=== PATIENT | male | born 1960 | race Caucasian/White ===

== ENCOUNTER 2022-04-03 16:07 | Inpatient (IN) ==
--- NOTE | 2022-04-03 16:27 | ED Triage Note ---
Date of Service April 03, 2022 History of Present Illness This patient was briefly evaluated while in triage. An abbreviated physical exam was performed. This patient is a 61-year-old Male with past medical history of cholangiocarcinoma who presents to the ED for evaluation of swelling. Patient had an ultrasound today which showed ascites and a pleural effusion. Physical Exam VITALS: Vitals are noted on the nurse's note and reviewed by myself. GENERAL: This is a 61-year-old male, chronically ill appearing. SKIN: Multiple areas of ecchymosis noted. HEART: Regular rate and rhythm without murmurs gallops or rubs. LUNGS: Breath sounds diminished in bilateral bases. EXTREMITIES: 2+ pitting edema bilaterally. NEURO: Patient was alert and oriented to person place and time. Initial orders for labs and / or imaging were placed and patient was placed in the waiting area until a bed is available. Please see further documentation for the full ED course.
--- NOTE | 2022-04-03 16:54 | XRay Report ---
XR chest 1V portable HISTORY: Shortness of breath. Pleural effusion. COMPARISON: Chest 07/29/2021. FINDINGS: There is a small to moderate right pleural effusion with right basilar densities. A few lef t basilar linear densities are also noted. The heart is normal in size. A left PICC and right jugular Port-A-Cath terminates at the SVC. No pneumothorax. IMPRESSION: 1. Interval development of a small to moderate right pleural effusion. 2. Bibasilar densities, right greater than left, are nonspecific but favor atelectasis. A pneumonia c ould also have a similar appearance but is considered less likely. ACT 112: Negative or not required by law. Electronically signed by: Rubén Haas M.D. 04/03/2022 4:52 PM
[2022-04-03] MEDS ORDERED: SODIUM CHLORIDE 0.9% 1000ML 1,000 ML IV ONE (16:57)
--- NOTE | 2022-04-03 17:26 | Emergency Department Note ---
Impression & Plan Weakness, Anemia, Large bowel obstruction, Jaundice, Pleural effusion, Ascites ED Provider Note NAME: ZULY MARTINEZ AGE: 61 SEX: M : 1960 ARRIVES VIA: Walk-In INFORMANT: [Patient][family] ED PROVIDER(S): [Will Sauceda MD] CHIEF COMPLAINT: DrMarian Referred HISTORY OF PRESENT ILLNESS: The patient is a 61-year-old male with stage IV cholangiocarcinoma. The patient on outpatient testing was found to have a right pleural effusion and large ascites. He has had a low-grade fever of 100 degrees. He has had 2 weeks of increasing abdominal pain and distention. His legs have also become more swollen, has become more yellow in color. He only receives nutrition via a PICC line, he receives TPN. The abdominal pain is moderate in severity, it is ongoing and constant. His last chemotherapy was sometime in August. As per his family, no further intervention for his cancer is possible. The patient is on Xarelto, he has not noticed any bleeding areas. The patient denies any cough or shortness of breath. He does feel weak. He has not had a rash. REVIEW OF SYSTEMS: See HPI for pertinent positives and negatives. A total of ten systems were reviewed and were otherwise negative. PMHx/PSHx: See Below SOCIAL HISTORY: See Below. PHYSICAL EXAM: GENERAL: Patient is in no acute distress. HEENT: No acute trauma, normocephalic atraumatic, mucous membranes moist, no nasal congestion, mild scleral icterus. NECK: No stridor, no adenopathy, no meningismus, trachea is midline. LUNGS: No wheezing, no respiratory distress. Diminished breath sounds at the right base. HEART: Without murmurs gallops or rubs, mildly tachycardic, regular rhythm. ABDOMEN: Firm distended abdomen. No peritonitis. EXTREMITIES: No cyanosis. Significant bilateral pedal edema. NEUROLOGIC: Oriented x 3, no acute motor or sensory deficits, no focal weakness. SKIN: No rash, moderate jaundice, no diaphoresis. Rectal: Brown stool, heme-negative. DIFFERENTIAL DIAGNOSIS: Infection, dehydration, UTI, COVID-19, spontaneous bacterial peritonitis, ascites, bowel obstruction, liver or renal failure, metabolic abnormality, hypo/hyperglycemia, electrolyte disturbance, anemia, hypoxia, cardiac sources, intracerebral event, toxicologic issues, stroke, TIA, as well as other pathologies. EMERGENCY DEPARTMENT COURSE/PROCEDURES: ECG: Indication was weakness. The ECG shows a sinus tachycardia with a rate of 111. There is some nonspecific ST change and baseline artifact. There is no ST elevation, no PVCs. The QTc is 394. Continuous Cardiac Monitoring: An order was placed for continuous cardiac monitoring. The monitor shows a rate of 109 with sinus tachycardia. Critical Care Note: I have personally spent 48 minutes of critical care time in the direct management of this patient. This includes bedside care, interpretation of diagnostic studies, and testing, discussion with consultants, patient, and family members, and other required patient management activities. This 48 minutes is in excess of all separately billable procedures. MEDICAL DECISION MAKING: There is a significant leukocytosis at 20,000, this is consistent with infection. The patient does have a significant anemia with a hemoglobin of 5.5. Platelet count was low at 72. A slight elevation of the INR was noted at 1.3. Renal panel testing showed a lower sodium at 131. No renal failure. Bilirubin was quite high at 13.2. This certainly explains his jaundice. Alk phos was also quite elevated. Lipase was normal. Influenza, COVID and RSV test were negative. Chest x-ray shows a right lung effusion. Brain CT shows no acute bleed or mass-effect. Abdominal and pelvis CT shows evidence for a large bowel obstruction, no bowel perforation. There was increased dilatation of the hepatic ducts, a large amount of ascites was seen. On exam, the patient was quite jaundiced with some abdominal distention. He had significant bilateral pedal edema. I did perform a rectal exam, stool was brown and heme-negative. Patient was given IV saline, 1 L. He received IV cefepime as empiric antibiotic coverage. I talked to the patient about his findings. His options are limited given his end-stage cancer. He did consent to a red blood cell transfusion, this may help him feel a bit improved. The paperwork for the transfusion was completed and signed. 2 units of packed red blood cells were ordered. I spoke with case management, the on-call hospitalist has been consulted. The patient's condition is poor, he may not survive this hospitalization. Past Med/Surg History Medical History Cancer MASS BILE DUCT/LIVER PER PT Diabetes mellitus PRE DIABETIC Hx of pancreatitis Hyperlipidemia Osteoarthritis HX OF INJECTIONS AT C6-C7. PT CONTINUES TO HAVE SOME MILD NUMBNESS IN LEFT HAND AND LEFT 5TH DIGIT. Surgical History History of appendectomy History of colonoscopy History of ERCP Hx of vasectomy Nausea and vomiting after administration of anesthetic agent Social History Smoking Status: Never smoker Second Hand Exposure: No; Do You Dip or Chew Tobacco: No; Tobacco Cessation Education Requested by Patient: No Hx Alcohol Use: No Hx Substance Use: No Preferred Language: Guatemalan Communication Ability: Effective Lead Cytogenetic Technologist Required: No Beliefs That Will Affect Care: None Current Living Situation: Spouse Current Living Situation Comment: at home with Other Information That Helps Us Care for You: No Feels Safe at Home: Yes Safety Concerns: Feels Safe At This Time Assistive Devices: Cane and Walker Allergies Allergies Allergy/AdvReac Type Severity Reaction Status Date / Time oxycodone [From OxyContin] Allergy rash Verified 06/21/18 07:59 Home Meds Home Medications Medication Instructions Recorded Confirmed multivitamin 1 cap PO QAM 06/21/18 04/03/22 ferrous sulfate 325 mg (65 mg 325 mg PO BID 04/03/22 04/03/22 iron) tablet furosemide 20 mg tablet 40 mg PO DAILY 04/03/22 04/03/22 morphine 15 mg immediate release 15 mg PO Q4H PRN Pain 04/03/22 04/03/22 tablet ondansetron HCl 8 mg tablet 8 mg PO Q8H PRN Nausea 04/03/22 04/03/22 pantoprazole 40 mg tablet,delayed 40 mg PO DAILY 04/03/22 04/03/22 release polyethylene glycol 3350 17 17 g PO DAILY PRN Constipation 04/03/22 04/03/22 gram/dose oral powder rivaroxaban 20 mg tablet (Xarelto) 20 mg PO DAILY 04/03/22 04/03/22 spironolactone 50 mg tablet 100 mg PO DAILY 04/03/22 04/03/22 Results & Data (ED) Vital Signs Vital Signs - 24 hr 04/03/22 16:18 04/03/22 17:14 04/03/22 16:23 Temperature 36.7 C Temperature Source Temporal Artery Scan Pulse Rate 105 H Pulse Rate [Left Apical] 111 H Pulse Rhythm [Left Apical] Regular Pulse Strength [Left Apical] Normal Respiratory Rate 22 20 Respiratory Effort / Characteristics Non-Labored Spontaneous Non-Labored Spontaneous Respiratory Depth Normal Normal Respiratory Pattern Regular Blood Pressure 104/64 Blood Pressure [Right Arm] 101/57 L Blood Pressure Mean 77 Blood Pressure Mean [Right Arm] 71 Blood Pressure Position Sitting Blood Pressure Position [Right Arm] Pulse Oximetry 100 94 91 Oxygen Delivery Method Room Air Room Air Room Air Oxygen Flow Rate Sepsis Recent Fever Within 48 Hours No Sepsis New/Unexplained Change in Mental Status No Sepsis Action Taken by Nursing Physician Notified 04/03/22 18:30 04/03/22 18:51 Temperature Temperature Source Pulse Rate Pulse Rate [Left Apical] 107 H 92 H Pulse Rhythm [Left Apical] Regular Regular Pulse Strength [Left Apical] Normal Normal Respiratory Rate 20 16 Respiratory Effort / Characteristics Non-Labored Spontaneous Non-Labored Spontaneous Respiratory Depth Normal Normal Respiratory Pattern Blood Pressure Blood Pressure [Right Arm] 90/47 L 97/49 L Blood Pressure Mean Blood Pressure Mean [Right Arm] 61 65 Blood Pressure Position Blood Pressure Position [Right Arm] Lying Lying Pulse Oximetry 94 95 Oxygen Delivery Method Room Air Nasal Cannula Oxygen Flow Rate 2 Sepsis Recent Fever Within 48 Hours Sepsis New/Unexplained Change in Mental Status Sepsis Action Taken by [facility] Medications Current Medication List: was personally reviewed by me Laboratory Data Attestation: I reviewed the patient's lab results. Result diagrams: 04/03/22 17:11 04/03/22 17:11 Lab Results 04/03/22 04/03/22 04/03/22 Range/Units 17:11 17:11 17:11 WBC 20.89 H (4.8-10.8) K/ul RBC 2.09 L (4.63-6.08) M/uL Hgb 5.5 L* (14.0-18.0) g/dl Hct 15.7 L* (40.1-51.0) % MCV 75.1 L (80.0-100.0) fL MCH 26.3 (25.0-34.0) pg MCHC 35.0 (32.0-36.0) g/dL RDW Std Deviation 47.6 H (36.4-46.3) fL RDW Coeff of Amanda 18.0 H (11.5-14.5) % Plt Count 72 L (130-400) K/uL Immature Gran % (Auto) 0.8 % Neut % (Auto) 97.4 % Lymph % (Auto) 1.0 % [place] % (Auto) 0.6 % Eos % (Auto) 0.0 % Baso % (Auto) 0.2 % Neut # (Auto) 20.35 H (1.4-6.5) K/uL Lymph # (Auto) 0.21 L (1.2-3.4) K/uL [place] # (Auto) 0.12 L (0.24-0.82) K/uL Eos # (Auto) 0.00 (0-0.50) K/uL Baso # (Auto) 0.04 (0-0.2) K/uL Immature Gran # (Auto) 0.17 H (0.00-0.02) K/uL Toxic Vacuolation 1+ Platelet Estimate Decreased L (Normal) Target Cells 1+ Echinocytes 1+ PT 13.6 H (9.0-12.0) Seconds INR 1.3 H (0.9-1.1) APTT 27.2 (21.0-31.0) Seconds PTT Ratio 1.0 Sodium 131 L (136-145) mmol/L Potassium 4.3 (3.5-5.1) mmol/L Chloride 103 (98-107) mmol/L Carbon Dioxide 17 L (21-32) mmol/L Anion Gap 11 (3-11) BUN 55 H (6-23) mg/dl Creatinine 0.93 (0.6-1.4) mg/dl Est Cr Clr Drug Dosing 95.5 ml/min Est GFR ( Amer) 103.1 ml/min Est GFR (Non-Af Amer) 88.9 ml/min BUN/Creatinine Ratio 59.1 H (10-20) Glucose 58 L (70-99(Fasting)) mg/dl Lactate Calcium 7.4 L (8.5-10.1) mg/dl Magnesium 2.1 (1.7-2.4) mg/dl Total Bilirubin 13.2 H (0.2-1.0) mg/dl AST 61 H (13-39) U/L ALT 48 (7-52) U/L Alkaline Phosphatase 676 H (34-104) U/L Ammonia (18-72) umol/L Total Protein 5.5 L (6.0-8.3) gm/dl Albumin 2.0 L (3.4-5.0) gm/dl Globulin 3.5 (2.5-4.0) gm/dl Albumin/Globulin Ratio 0.6 L (0.9-2) Lipase 10 L (11-82) U/L SARS-CoV-2 (PCR) (Negative) Influenza Type A (PCR) (Neg) Influenza Type B (PCR) (Neg) RSV (RT-PCR) (Neg) Blood Type Antibody Screen Crossmatch 04/03/22 04/03/22 04/03/22 Range/Units 17:11 17:37 18:50 WBC (4.8-10.8) K/ul RBC (4.63-6.08) M/uL Hgb (14.0-18.0) g/dl Hct (40.1-51.0) % MCV (80.0-100.0) fL MCH (25.0-34.0) pg MCHC (32.0-36.0) g/dL RDW Std Deviation (36.4-46.3) fL RDW Coeff of Amanda (11.5-14.5) % Plt Count (130-400) K/uL Immature Gran % (Auto) % Neut % (Auto) % Lymph % (Auto) % [place] % (Auto) % Eos % (Auto) % Baso % (Auto) % Neut # (Auto) (1.4-6.5) K/uL Lymph # (Auto) (1.2-3.4) K/uL [place] # (Auto) (0.24-0.82) K/uL Eos # (Auto) (0-0.50) K/uL Baso # (Auto) (0-0.2) K/uL Immature Gran # (Auto) (0.00-0.02) K/uL Toxic Vacuolation Platelet Estimate (Normal) Target Cells Echinocytes PT (9.0-12.0) Seconds INR (0.9-1.1) APTT (21.0-31.0) Seconds PTT Ratio Sodium (136-145) mmol/L Potassium (3.5-5.1) mmol/L Chloride (98-107) mmol/L Carbon Dioxide (21-32) mmol/L Anion Gap (3-11) BUN (6-23) mg/dl Creatinine (0.6-1.4) mg/dl Est Cr Clr Drug Dosing ml/min Est GFR ( Amer) ml/min Est GFR (Non-Af Amer) ml/min BUN/Creatinine Ratio (10-20) Glucose (70-99(Fasting)) mg/dl Lactate TNP Calcium (8.5-10.1) mg/dl Magnesium (1.7-2.4) mg/dl Total Bilirubin (0.2-1.0) mg/dl AST (13-39) U/L ALT (7-52) U/L Alkaline Phosphatase (34-104) U/L Ammonia (18-72) umol/L Total Protein (6.0-8.3) gm/dl Albumin (3.4-5.0) gm/dl Globulin (2.5-4.0) gm/dl Albumin/Globulin Ratio (0.9-2) Lipase (11-82) U/L SARS-CoV-2 (PCR) NEGATIVE (Negative) Influenza Type A (PCR) Negative (Neg) Influenza Type B (PCR) Negative (Neg) RSV (RT-PCR) Negative (Neg) Blood Type Antibody Screen Crossmatch 04/03/22 Range/Units 18:50 WBC (4.8-10.8) K/ul RBC (4.63-6.08) M/uL Hgb (14.0-18.0) g/dl Hct (40.1-51.0) % MCV (80.0-100.0) fL MCH (25.0-34.0) pg MCHC (32.0-36.0) g/dL RDW Std Deviation (36.4-46.3) fL RDW Coeff of Amanda (11.5-14.5) % Plt Count (130-400) K/uL Immature Gran % (Auto) % Neut % (Auto) % Lymph % (Auto) % [place] % (Auto) % Eos % (Auto) % Baso % (Auto) % Neut # (Auto) (1.4-6.5) K/uL Lymph # (Auto) (1.2-3.4) K/uL [place] # (Auto) (0.24-0.82) K/uL Eos # (Auto) (0-0.50) K/uL Baso # (Auto) (0-0.2) K/uL Immature Gran # (Auto) (0.00-0.02) K/uL Toxic Vacuolation Platelet Estimate (Normal) Target Cells Echinocytes PT (9.0-12.0) Seconds INR (0.9-1.1) APTT (21.0-31.0) Seconds PTT Ratio Sodium (136-145) mmol/L Potassium (3.5-5.1) mmol/L Chloride (98-107) mmol/L Carbon Dioxide (21-32) mmol/L Anion Gap (3-11) BUN (6-23) mg/dl Creatinine (0.6-1.4) mg/dl Est Cr Clr Drug Dosing ml/min Est GFR ( Amer) ml/min Est GFR (Non-Af Amer) ml/min BUN/Creatinine Ratio (10-20) Glucose (70-99(Fasting)) mg/dl Lactate Calcium (8.5-10.1) mg/dl Magnesium (1.7-2.4) mg/dl Total Bilirubin (0.2-1.0) mg/dl AST (13-39) U/L ALT (7-52) U/L Alkaline Phosphatase (34-104) U/L Ammonia (18-72) umol/L Total Protein (6.0-8.3) gm/dl Albumin (3.4-5.0) gm/dl Globulin (2.5-4.0) gm/dl Albumin/Globulin Ratio (0.9-2) Lipase (11-82) U/L SARS-CoV-2 (PCR) (Negative) Influenza Type A (PCR) (Neg) Influenza Type B (PCR) (Neg) RSV (RT-PCR) (Neg) Blood Type A Positive Antibody Screen NEGATIVE Crossmatch See Detail Administered Medications Furosemide (Furosemide Inj 20 Mg/2 Ml Vial) 20 mg IV DAILY NADER Stop: 05/03/22 22:46 Last Admin: 04/04/22 00:09 Dose: Not Given Documented By: Pantoprazole Sodium 40 mg/ (Syringe) 10 mls @ 5 mls/min IV BID NADER Stop: 05/03/22 20:59 Last Admin: 04/03/22 21:03 Dose: 5 mls/min Documented By: CC Discontinued Medications Sodium Chloride (Nss 1000ml) 1,000 mls @ 999 mls/hr IV .Q1H1M ONE Stop: 04/03/22 17:57 Last Infusion: 04/03/22 18:33 Dose: 0 mls/hr Documented By: HOLLY(2) Admin: 04/03/22 17:32 Dose: 999 mls/hr Documented By: TW Cefepime HCl (Maxipime) 2,000 mg in 20 mls @ 5 mls/min IV NOW STA; Protocol Stop: 04/03/22 18:14 Last Admin: 04/03/22 18:49 Dose: 5 mls/min Documented By: TW Imaging Data Radiologist's Impression: Chest X-Ray 04/03/22 16:23 XR chest 1V portable HISTORY: Shortness of breath. Pleural effusion. COMPARISON: Chest 07/29/2021. FINDINGS: There is a small to moderate right pleural effusion with right basilar densities. A few left basilar linear densities are also noted. The heart is normal in size. A left PICC and right jugular Port-A-Cath terminates at the SVC. No pneumothorax. IMPRESSION: 1. Interval development of a small to moderate right pleural effusion. 2. Bibasilar densities, right greater than left, are nonspecific but favor atelectasis. A pneumonia could also have a similar appearance but is considered less likely. ACT 112: Negative or not required by law. Electronically signed by: Rubén Haas M.D. 04/03/2022 4:[address] 04/03/22 16:57 CT head/brain wo con CLINICAL HISTORY: 61 years-old Male with seizure. Acute seizure like activity TECHNIQUE: Multiple axial CT images of the head were obtained without contrast. A dose lowering technique was utilized adhering to the principles of ALARA. CT DOSE: 519.68 mGycm COMPARISON: None. FINDINGS: No acute intracranial hemorrhage, midline shift, intracranial mass, hydrocephalus, territorial ischemia or abnormal extra-axial collection. Cerebral vascular calcifications. The calvarium is intact. The paranasal sinuses, mastoid air cells, and middle ear cavities are clear. IMPRESSION: No acute intracranial abnormality. ACT 112: Negative or not required by law. The above report was generated using voice recognition software. It may contain grammatical, syntax or spelling errors. Electronically signed by: Justin Guzman M.D. 04/03/2022 6:06 PM Abdomen/Pelvis CT 04/03/22 17:[address] WITHOUT CONTRAST CT DOSE: 1007.73 mGycm HISTORY: Acute generalized abdominal pain poss obstruc TECHNIQUE: Multiaxial CT images of the abdomen and pelvis were performed without contrast. A dose lowering technique was utilized adhering to the principles of ALARA. COMPARISON STUDY: CTA of the abdomen from outside facility 08/10/2018 FINDINGS: Study is limited secondary to respiratory motion artifact, and lack of contrast. Cardiomegaly with decreased attenuation of the cardiac blood pool suggestive of anemia. Small pericardial effusion. Trace left with moderate to large right pleural effusions. Bibasilar consolidation. No pneumatosis or pneumoperitoneum is identified. The unenhanced spleen is enlarged measuring 15.6 cm in length. The visualized pancreas appears atrophic. Surgical clips and suture material noted within the midabdomen is new from the prior study. Adrenal gland thickening suggestive of hyperplasia. The gallbladder is not visualized. Branchi ng hypodensities within the posterior right hepatic lobe have progressed from the prior study suggestive of intrahepatic biliary ductal dilation. There is heterogeneity of the central liver and kecia hepatis. 3 mm nonobstructing calculus of the inferior pole right kidney. 2 mm calculus of the interpolar left kidney. Possible additional punctate calculus of the inferior pole. No ureteral calculi or hydronephrosis identified. Prostamegaly. Urinary bladder wall thickening with partial distention. There is a small fat filled right inguinal hernia with fluid extending into the hernia sac. Atherosclerosis of the aorta without aneurysm. Postoperative changes of the stomach and proximal small bowel. Large ascites with anasarca. Large amount of fecal retention. Findings are compatible with a large bowel obstruction with swelling noted within the lower abdominal mesentery. There may be 2.7 obstruction within the large bowel. At least one area of transition is noted within the distribution of the transverse colon. Additional narrowing is noted at the hepatic flexure. The cecum appears to be present within the abdominal right lower quadrant. No definite associated small bowel obstruction. Degenerative changes of the spine, pelvis and hips. IMPRESSION: 1. Limited exam. 2. Extensive fecal retention with findings compatible with a large bowel obstruction, possibly with 2 sites of obstruction. Findings raise the possibility of a closed loop obstruction which is difficult to evaluate secondary to limitations described above. 3. Volume overload with anasarca, large ascites with small pericardial effusion with large right pleural effusion. 4. Progressively worsened intrahepatic biliary ductal dilation. Hepatic lesions are difficult to exclude without the use of IV contrast. 5. Chronic postoperative changes. ACT 112: Negative or not required by law. The above report was generated using voice recognition software. It may contain grammatical, syntax or spelling errors. Electronically signed by: Justin Guzman M.D. 04/03/2022 7:01 PM Discharge Plan Visit Data Chief Complaint: Referred by Doctor Stated Complaint: REF BY [facility], CANCER ED Provider: Will Sauceda Discharge Problem: Weakness, Anemia, Large bowel obstruction, Jaundice, Pleural effusion, Ascites Patient Disposition: Admitted As Inpatient Condition: Serious Discharge Instructions Interventions: ED Discharge Assessment Last Done: 04/03/22 21:55
[2022-04-03 17:42] LABS: INR 1.3 (0.9-1.1); Partial Thromboplastin Time 27.2 Seconds (21.0-31.0); Prothrombin Time 13.6 Seconds (9.0-12.0)
[2022-04-03 17:48] LABS: Basophils # (auto) 0.04 K/uL (0-0.2); Basophils % (auto) 0.2 %; Echinocytes 1+; Hematocrit (blood only) 15.7 % (40.1-51.0); Hemoglobin 5.5 g/dl (14.0-18.0); Immature Granulocytes # (auto) 0.17 K/uL (0.00-0.02); Immature Granulocytes % (auto) 0.8 %; Lymphocytes # (auto) 0.21 K/uL (1.2-3.4); Mean Corpuscular Hemoglobin 26.3 pg (25.0-34.0); Mean Corpuscular Volume 75.1 fL (80.0-100.0); Monocytes # (auto) 0.12 K/uL (0.24-0.82); Monocytes % (auto) 0.6 %; Neutrophils # (auto) 20.35 K/uL (1.4-6.5); Neutrophils % (auto) 97.4 %; Platelet Count 72 K/uL (130-400); Platelet Estimate Decreased (Normal); RDW Standard Deviation 47.6 fL (36.4-46.3); Red Blood Count 2.09 M/uL (4.63-6.08); Target Cells 1+; Toxic Vacuolation 1+; White Blood Count 20.89 K/ul (4.8-10.8)
--- NOTE | 2022-04-03 18:08 | CT Scan Report ---
CT head/brain wo con CLINICAL HISTORY: 61 years-old Male with seizure. Acute seizure like activity TECHNIQUE: Multiple axial CT images of the head were obtained without contrast. A dose lowering tech nique was utilized adhering to the principles of ALARA. CT DOSE: 519.68 mGycm COMPARISON: None. FINDINGS: No acute intracranial hemorrhage, midline shift, intracranial mass, hydrocephalus, territorial ischem ia or abnormal extra-axial collection. Cerebral vascular calcifications. The calvarium is intact. The paranasal sinuses, mastoid air cells, and middle ear cavities are clear . IMPRESSION: No acute intracranial abnormality. ACT 112: Negative or not required by law. The above report was generated using voice recognition software. It may contain grammatical, syntax o r spelling errors. Electronically signed by: Justin Guzman M.D. 04/03/2022 6:06 PM
[2022-04-03] MEDS ORDERED: CEFEPIME 2,000 MG/20 ML VIAL IV STA (18:11)
[2022-04-03] MEDS ORDERED: SODIUM CHLORIDE 0.9% 250 ML IV PRN (18:24)
--- NOTE | 2022-04-03 19:03 | CT Scan Report ---
ABDOMEN AND PELVIS CT WITHOUT CONTRAST CT DOSE: 1007.73 mGycm HISTORY: Acute generalized abdominal pain poss obstruc TECHNIQUE: Multiaxial CT images of the abdomen and pelvis were performed without contrast. A dose lo wering technique was utilized adhering to the principles of ALARA. COMPARISON STUDY: CTA of the abdomen from outside facility 08/10/2018 FINDINGS: Study is limited secondary to respiratory motion artifact, and lack of contrast. Cardiomegaly with decreased attenuation of the cardiac blood pool suggestive of anemia. Small pericar dial effusion. Trace left with moderate to large right pleural effusions. Bibasilar consolidation. No pneumatosis or pneumoperitoneum is identified. The unenhanced spleen is enlarged measuring 15.6 cm i n length. The visualized pancreas appears atrophic. Surgical clips and suture material noted within t he midabdomen is new from the prior study. Adrenal gland thickening suggestive of hyperplasia. The ga llbladder is not visualized. Branching hypodensities within the posterior right hepatic lobe have pro gressed from the prior study suggestive of intrahepatic biliary ductal dilation. There is heterogenei ty of the central liver and kecia hepatis. 3 mm nonobstructing calculus of the inferior pole right kidney. 2 mm calculus of the interpolar left kidney. Possible additional punctate calculus of the inferior pole. No ureteral calculi or hydronephr osis identified. Prostamegaly. Urinary bladder wall thickening with partial distention. There is a sm all fat filled right inguinal hernia with fluid extending into the hernia sac. Atherosclerosis of the aorta without aneurysm. Postoperative changes of the stomach and proximal small bowel. Large ascites with anasarca. Large tarun unt of fecal retention. Findings are compatible with a large bowel obstruction with swelling noted wi thin the lower abdominal mesentery. There may be 2.7 obstruction within the large bowel. At least one area of transition is noted within the distribution of the transverse colon. Additional narrowing is noted at the hepatic flexure. The cecum appears to be present within the abdominal right lower quadr ant. No definite associated small bowel obstruction. Degenerative changes of the spine, pelvis and hi ps. IMPRESSION: 1. Limited exam. 2. Extensive fecal retention with findings compatible with a large bowel obstruction, possibly with 2 sites of obstruction. Findings raise the possibility of a closed loop obstruction which is difficult to evaluate secondary to limitations described above. 3. Volume overload with anasarca, large ascites with small pericardial effusion with large right pleu ral effusion. 4. Progressively worsened intrahepatic biliary ductal dilation. Hepatic lesions are difficult to excl ude without the use of IV contrast. 5. Chronic postoperative changes. ACT 112: Negative or not required by law. The above report was generated using voice recognition software. It may contain grammatical, syntax o r spelling errors. Electronically signed by: Justin Guzman M.D. 04/03/2022 7:01 PM
[2022-04-03 19:08] LABS: Influenza A virus by PCR Negative (Neg); Influenza B virus by PCR Negative (Neg); RSV by PCR Negative (Neg); SARS CoV2 RNA(COVID-19) InHosp NEGATIVE (Negative)
[2022-04-03 19:16] LABS: Albumin Globulin Ratio 0.6 (0.9-2); BUN Creatinine Ratio 59.1 (10-20); Bilirubin,Total 13.2 mg/dl (0.2-1.0); Calcium 7.4 mg/dl (8.5-10.1); Creatinine Clr Calc Pharmacy 95.5 ml/min; Est GFR (African American) 103.1 ml/min; Est GFR (Non-African American) 88.9 ml/min; Globulin 3.5 gm/dl (2.5-4.0); Magnesium 2.1 mg/dl (1.7-2.4); Potassium 4.3 mmol/L (3.5-5.1); Total Protein 5.5 gm/dl (6.0-8.3)
--- NOTE | 2022-04-03 19:40 | History & Physical Report ---
Date of Service April 03, 2022 Assessment & Plan (1) Anasarca: Plan Stage IV cholangiocarcinoma history Abdominal distention/pain--> large bowel obstruction Ascites/anasarca/large right pleural effusion Patient coming in with worsening abdominal pain/distention since last 2 weeks TELESALES ADVISOR Patient does have advanced cholangiocarcinoma not deemed amenable to any further chemo per patient's per his primary oncologist. Admitting CTAP: Suggestive of large bowel obstruction, volume overload with anasarca and large ascites and large right pleural effusion, progressively worsened intrahepatic biliary ductal dilatation. Will continue with Lasix iv and Aldactone, n.p.o. except for meds/ice chips, TPN in a.m., blood transfusion, will hold on IV fluids. Conservative management for bowel obstruction, pt w/ occasional nausea, no vomiting, last BM 7 days ago (liquid BM) and pt doesn't take food per PO---> consider surgery consult if hospice is not set up. Cancer not amenable to further chemo, very poor prognosis, patient and his interested in exploring hospice option, will consult case management. WBC elevated on the background of abdominal distention and pain, will continue with Rocephin. Lactate level not obtainable due to icterus. For body cavity fluid collection, paracentesis tomorrow with the studies and follow blood culture-->since radiology is not in house over weekeds as I am informed, AM provider will have to get in touch w/ radio to see if they can do it; for large rt pleural effusion--> pulm consult. Acute anemia: Last hemoglobin from outpatient chart review is 15 from August 2018, FOBT negative in the ED, CTAP negative for any bleed, will send iron panel, patient getting 2 units blood transfusion per ED provider, H&H in AM. Mild hyponatremia: monitor BMP in AM. DVT Px: Xarelto held, paracentesis eunice, SCDs DNR/DNI Dispo: Pt will benefit from Hospice care given advanced cancer with poor prognosis. Pt/family would like to explore hospice options. History of Present Illness Chief Complaint: abd pain and distension Primary Care Provider: Morgan Riley DO 61-year-old male with PMH of stage IV cholangiocarcinoma, colon cancer, biliary stricture, pancreatitis, HTN, HLD, status post Whipple procedure and chemotherap y, last chemo September of this year and was deemed not suitable for any further chemo per patient's primary oncologist Per patient's at bedside presented to our ED 04/03 with complaint of worsening abdominal distention and belly pain since 2 weeks TELESALES ADVISOR. Patient was noted to have fever of 100 F today at home. Patient denies headache/dizziness/sore throat/cough/shortness of breath/chest pain/palpitation/acute changes in bowel or bladder habits. Patient gets nutrition through TPN, can drink water and p.o. meds but does not have food intake. Patient does complain of some nausea but no vomiting. Patient also complains of generalized body swelling/fluid retention and becoming more yellow in color lately. FOBT in the ED was negative. Patient denies use of tobacco/alcohol/recreational drugs. Patient is DNR/DNI. Patient is interested in exploring hospice option, will consult case management. Allergies Allergy/AdvReac Type Severity Reaction Status Date / Time oxycodone [From OxyContin] Allergy rash Verified 06/21/18 07:59 Home Medications Medication Instructions Recorded Confirmed Type multivitamin 1 cap PO QAM 06/21/18 06/21/18 History ferrous sulfate 325 mg (65 mg 325 mg PO BID 04/03/22 04/03/22 History iron) tablet furosemide 20 mg tablet 40 mg PO DAILY 04/03/22 04/03/22 History morphine 15 mg immediate release 15 mg PO Q4H PRN Pain 04/03/22 04/03/22 History tablet ondansetron HCl 8 mg tablet 8 mg PO Q8H PRN Nausea 04/03/22 04/03/22 History pantoprazole 40 mg tablet,delayed 40 mg PO DAILY 04/03/22 04/03/22 History release polyethylene glycol 3350 17 17 g PO DAILY PRN Constipation 04/03/22 04/03/22 History gram/dose oral powder rivaroxaban 20 mg tablet (Xarelto) 20 mg PO DAILY 04/03/22 04/03/22 History spironolactone 50 mg tablet 100 mg PO DAILY 04/03/22 04/03/22 History Past Med/Surg History Medical History (Updated 04/03/22 @ 20:19 by Olaf West MD) Cancer MASS BILE DUCT/LIVER PER PT Diabetes mellitus PRE DIABETIC Hx of pancreatitis Hyperlipidemia Osteoarthritis HX OF INJECTIONS AT C6-C7. PT CONTINUES TO HAVE SOME MILD NUMBNESS IN LEFT HAND AND LEFT 5TH DIGIT. Surgical History History of appendectomy History of colonoscopy History of ERCP Hx of vasectomy Nausea and vomiting after administration of anesthetic agent Social History Smoking Status: Never smoker Second Hand Exposure: No; Hx Alcohol Use: No (HX OF 3 BEER A DAY, QUIT March) Hx Substance Use: No Preferred Language: Cymro Communication Ability: Effective Head Correction Officer Required: No Beliefs That Will Affect Care: None Current Living Situation: Spouse Feels Safe at Home: Yes Assistive Devices: None Review of Systems Review of Systems: Negative otherwise mentioned in HPI. Physical Exam Physical Exam: GENERAL: Alert and oriented x3. On 2 L nasal cannula oxygen, mild distress, weak/ill/weak/frail/older than age. HEENT: Pallor positive, icterus positive. Pupils equal, round and reactive to light. Oral mucosa moist. NECK: No JVD, no neck masses. HEART: S1 and S2 heard. Tachycardic. No murmur, no gallop. RESPIRATORY SYSTEM: Normal AP diameter. No accessory muscle use. No wheezing, no crackles. Decreased breath sounds right greater than left. ABDOMEN: Distended, tense, mild diffuse tenderness, healed midline surgical scar noted, decreased bowel sounds. CENTRAL NERVOUS SYSTEM: No facial droop. Speech is clear. Obeys simple commands. Moves extremities. EXTREMITIES: 3+ BLE edema, 2+ thigh edema and back edema. Results & Data Results & Data ([facility]) Vital Signs (Past 12 Hours) Vital Signs Temp Pulse Pulse Resp BP BP Pulse Ox 04/03/22 18:51 92 H 16 97/49 L 95 04/03/22 18:30 107 H 20 90/47 L 94 04/03/22 16:23 91 04/03/22 17:14 111 H 20 101/57 L 94 04/03/22 16:18 36.7 C 105 H 22 104/64 100 O2 Del Method O2 Flow Rate 04/03/22 18:51 Nasal Cannula 2 04/03/22 18:30 Room Air 04/03/22 16:23 Room Air 04/03/22 17:14 Room Air 04/03/22 16:18 Room Air Code Status & VTE Plan VTE Prophylaxis Plan VTE Prophylaxis will be ordered: Yes
[2022-04-03] MEDS ORDERED: TPN/PPN CONSULT PHARMACY PRN (20:19)
[2022-04-03] MEDS: PANTOprazole 40 MG in SYRINGE 0 ML IV SCH (21:03)
[2022-04-03] MEDS ORDERED: ONDANSETRON INJ 2 MG/ML 2 ML VIAL IV PRN (22:47)
[2022-04-04] MEDS: FUROSEMIDE INJ 20 MG/2 ML VIAL IV SCH (00:09)
[2022-04-04 00:39] LABS: HCO3 ABG 18 mmol/L (19-24); Oxygen Saturation ABG 98.1 % (90-95); PCO2 ABG 29 mmHg (35-46); PO2 ABG 69 mmHg (80-95); pH ABG 7.41 (7.35-7.45)
[2022-04-04 01:02] LABS: Allen Test Pos (Pos)
[2022-04-04] MEDS ORDERED: cefTRIAXone SODIUM 2,000 MG in DEXTROSE 5% 50 ML IV SCH (03:00)
[2022-04-04 05:52] LABS: A calco-baum cmplx NotReported Not Detected (NotDetected); Bact fragilis Not Reported Not Detected (NotDetected); C auris Not Reported Not Detected (NotDetected); CTX-M Resistant Gene Not Detected (NotDetected); Calbicans Not Reported Not Detected (NotDetected); Candida glabrata Not Reported Not Detected (NotDetected); Candida krusei Not Reported Not Detected (NotDetected); Cneoformans/gatti Not Reported Not Detected (NotDetected); Cparapsilosis Not Reported Not Detected (NotDetected); Ctropicalis Not Reported Not Detected (NotDetected); E cloacae compx Not Reported Not Detected (NotDetected); Efaecalis Not Reported Not Detected (NotDetected); Efaecium Not Reported Not Detected (NotDetected); Enterobacterales DETECTED (NotDetected); Enterobacterales Not Reported DETECTED (NotDetected); Escherichia coli Not Reported DETECTED (NotDetected); H influenzae Not Reported Not Detected (NotDetected); IMP Resistant Gene Not Detected (NotDetected); K aerogenes Not Reported Not Detected (NotDetected); KPC Resistant Gene Not Detected (NotDetected); Koxytoca Not Reported Not Detected (NotDetected); Kpneumoniae grp Not Reported Not Detected (NotDetected); Lmonocyt Not Reported Not Detected (NotDetected); N meningitidis Not Reported Not Detected (NotDetected); NDM Resistant Gene Not Detected (NotDetected); OXA 48 Like Resistant Gene Not Detected (NotDetected); P aeruginosa Not Reported Not Detected (NotDetected); Proteus spp Not Reported Not Detected (NotDetected); Salmonella spp Not Reported Not Detected (NotDetected); Smarcescens Not Reported Not Detected (NotDetected); Staph lugdunensis Not Reported Not Detected (NotDetected); Staph spp. Not Reported Not Detected (NotDetected); Staphaureus Not Reported Not Detected (NotDetected); Staphepi Not Reported Not Detected (NotDetected); Stenmaltophilia Not Reported Not Detected (NotDetected); Strep agal(GrpB) Not Reported Not Detected (NotDetected); Strep pneum Not Reported Not Detected (NotDetected); Strep pyog (GrpA) Not Reported Not Detected (NotDetected); Strep spp Not Reported Not Detected (NotDetected); VIM Resistant Gene Not Detected (NotDetected); mcr-1 Colistin Resistant Gene Not Detected (NotDetected)
[2022-04-04] MEDS ORDERED: PIPERACILLIN/TAZOBACTAM 4.5 GM in DEXTROSE 5% 100 ML IV ONE (06:30)
[2022-04-04 07:29] LABS: Anion Gap 9 (3-11); BUN Creatinine Ratio 59.5 (10-20); Blood Urea Nitrogen 50 mg/dl (6-23); Carbon Dioxide 19 mmol/L (21-32); Chloride 104 mmol/L (98-107); Creatinine Clr Calc Pharmacy 105.7 ml/min; Est GFR (African American) 110.3 ml/min; Est GFR (Non-African American) 95.2 ml/min; Glucose 80 mg/dl (70-99(Fasting)); Sodium 132 mmol/L (136-145)
[2022-04-04 07:36] LABS: Hematocrit (blood only) 20.8 % (40.1-51.0); Hemoglobin 7.5 g/dl (14.0-18.0); Mean Corpuscular Hemoglobin 27.7 pg (25.0-34.0); Mean Corpuscular Hgb Conc 36.1 g/dL (32.0-36.0); Mean Corpuscular Volume 76.8 fL (80.0-100.0); Platelet Count 56 K/uL (130-400); RDW Coefficient of Variation 18.9 % (11.5-14.5); RDW Standard Deviation 52.1 fL (36.4-46.3); Red Blood Count 2.71 M/uL (4.63-6.08); White Blood Count 20.38 K/ul (4.8-10.8)
[2022-04-04 07:40] LABS: Acanthocytes 1+; Basophils # (auto) 0.03 K/uL (0-0.2); Basophils % (auto) 0.1 %; Echinocytes 2+; Eosinophils % (auto) 0.5 %; Immature Granulocytes # (auto) 0.22 K/uL (0.00-0.02); Immature Granulocytes % (auto) 1.1 %; Lymphocytes # (auto) 0.66 K/uL (1.2-3.4); Lymphocytes % (auto) 3.2 %; Macrocytosis Present; Monocytes # (auto) 0.48 K/uL (0.24-0.82); Monocytes % (auto) 2.4 %; Neutrophils # (auto) 18.89 K/uL (1.4-6.5); Neutrophils % (auto) 92.7 %; Poikilocytosis Present; Polychromasia 1+; Target Cells 1+; Toxic Granulation 1+; Toxic Vacuolation 1+
[2022-04-04 07:46] LABS: Ferritin 352.2 ng/ml (8-388)
[2022-04-04 07:52] LABS: Folate (Folic Acid) 8.81 ng/ml (>5.38)
[2022-04-04 07:53] LABS: Vitamin B12 > 1500 pg/ml (180-914)
[2022-04-04] MEDS: PANTOprazole 40 MG in SYRINGE 0 ML IV SCH ×2 (08:00→20:39)
[2022-04-04] MEDS: SPIRONOLACTONE 100 MG TAB PO SCH (08:00)
--- NOTE | 2022-04-04 09:27 | Electrocardiogram Report ---
Test Reason : Blood Pressure : / mmHG Vent. Rate : 111 BPM Atrial Rate : 111 BPM P-R Int : 142 ms QRS Dur : 084 ms QT Int : 290 ms P-R-T Axes : 034 014 035 degrees QTc Int : 394 ms Poor data quality, interpretation may be adversely affected Sinus tachycardia Diffuse Minor Nonspecific T wave abnormality Abnormal ECG When compared with ECG of 20-MAY-2018 06:09, Vent. rate has increased BY 39 BPM Nonspecific T wave abnormality now present Confirmed by Tk Kimball ([id number]) on 04/04/2022 9:27:13 AM Referred By: REFERRED SELF Confirmed By:Tk Kimball
[2022-04-04] MEDS ORDERED: DEXTROSE 10% 1,000 ML IV PRN (09:57)
[2022-04-04 10:15] LABS: Alanine Aminotransferase 40 U/L (7-52); Albumin Globulin Ratio 0.6 (0.9-2); Albumin Level 1.9 gm/dl (3.4-5.0); Alkaline Phosphatase 465 U/L (34-104); Aspartate Aminotransferase 52 U/L (13-39); Bilirubin,Total 12.3 mg/dl (0.2-1.0); Globulin 3.1 gm/dl (2.5-4.0); Iron < 10 mcg/dl (35-175); Magnesium 2.2 mg/dl (1.7-2.4); Phosphorus 4.3 mg/dl (2.5-4.9); Transferrin 137 mg/dl (200-360); Triglycerides 144 mg/dl (0-150); Unsaturated Iron Binding Cap 148 mcg/dl (155-355)
[2022-04-04] MEDS: MoRPHine SULFATE 4 MG/ML 1 ML CARP\\VIAL IV PRN ×2 (10:31→16:22)
[2022-04-04] MEDS ORDERED: PIPERACILLIN/TAZOBACTAM 3.375 GM in DEXTROSE 5% 100 ML IV SCH (12:00)
--- NOTE | 2022-04-04 12:31 | Anesthesiology Consultation ---
Date of Service April 04, 2022 Assessment & Plan (1) Encounter for pre-operative examination: Chart Review Chart Review: Patient NOT seen in Pre Admission Testing Patient at high risk for procedure, however will proceed due to emergent nature Consults Requested none History Surgery Operation Date: 04/04/22 13:00 Proposed Procedures p Esophagogastroduodenoscopy - Vaughn Richard MD Height/Weight Height: 6 ft 1 in Weight: 85 kg Allergies Allergy/AdvReac Type Severity Reaction Status Date / Time oxycodone [From OxyContin] Allergy rash Verified 06/21/18 07:59 Medications Home Medications Medication Instructions Recorded Confirmed Last Taken multivitamin 1 cap PO QAM 06/21/18 04/03/22 Unknown ferrous sulfate 325 mg (65 mg 325 mg PO BID 04/03/22 04/03/22 Unknown iron) tablet furosemide 20 mg tablet 40 mg PO DAILY 04/03/22 04/03/22 04/03/22 morphine 15 mg immediate release 15 mg PO Q4H PRN Pain 04/03/22 04/03/22 Unknown tablet ondansetron HCl 8 mg tablet 8 mg PO Q8H PRN Nausea 04/03/22 04/03/22 Unknown pantoprazole 40 mg tablet,delayed 40 mg PO DAILY 04/03/22 04/03/22 04/03/22 release polyethylene glycol 3350 17 17 g PO DAILY PRN Constipation 04/03/22 04/03/22 Unknown gram/dose oral powder rivaroxaban 20 mg tablet (Xarelto) 20 mg PO DAILY 04/03/22 04/03/22 04/03/22 spironolactone 50 mg tablet 100 mg PO DAILY 04/03/22 04/03/22 04/03/22 Active Medications Generic Name Dose Route Start Last Admin Trade Name Freq PRN Reason Stop Dose Admin Furosemide 20 mg 04/03/22 22:47 04/04/22 00:09 Furosemide Inj 20 Mg/2 Ml Vial IV 05/03/22 22:46 Not Given DAILY NADER Pantoprazole Sodium 40 mg/ 10 mls @ 5 mls/min 04/03/22 21:00 04/04/22 08:00 Syringe IV 05/03/22 20:59 5 mls/min BID NADER Administration Morphine Sulfate 4 mg 04/04/22 08:08 04/04/22 10:31 Morphine Sulfate 4 Mg/Ml 1 Ml Carp\Vial IV 04/18/22 08:07 4 mg Q6H PRN Administration Pain Spironolactone 100 mg 04/04/22 09:00 04/04/22 08:00 Spironolactone 100 Mg Tab PO 05/04/22 08:59 100 mg QAM NADER Administration Past Medical History Medical History Cancer MASS BILE DUCT/LIVER PER PT Diabetes mellitus PRE DIABETIC Hx of pancreatitis Hyperlipidemia Osteoarthritis HX OF INJECTIONS AT C6-C7. PT CONTINUES TO HAVE SOME MILD NUMBNESS IN LEFT HAND AND LEFT 5TH DIGIT. Past Surgical History Surgical History History of appendectomy History of colonoscopy History of ERCP Hx of vasectomy Nausea and vomiting after administration of anesthetic agent Social History Smoking Status: Never smoker tobacco type: smokeless tobacco Do You Dip or Chew Tobacco: No Hx Alcohol Use: No Hx Substance Use: No substance use type: does not use Physical Exam Vital Signs Last Vital Signs Temp 97.5 F L 04/04/22 11:22 Pulse 75 04/04/22 11:22 Resp 19 04/04/22 11:22 BP 94/64 L 04/04/22 11:22 Pulse Ox 95 04/04/22 11:22 O2 Del Method 04/04/22 11:22 O2 Flow Rate 2 04/04/22 09:00 Testing Laboratory Results 04/04/22 05:56 04/04/22 05:56 PT 13.6 Seconds (9.0-12.0) H 04/03/22 17:11 INR 1.3 (0.9-1.1) H 04/03/22 17:11 APTT 27.2 Seconds (21.0-31.0) 04/03/22 17:11 Blood Type A Positive 04/03/22 18:50 Antibody Screen NEGATIVE 04/03/22 18:50 04/03/22 18:50 Aerobic Blood Culture - Preliminary Blood Gram negative bacilli Anaerobic Blood Culture - Preliminary Gram negative bacilli 04/03/22 18:50 Aerobic Blood Culture - Preliminary Blood Gram negative bacilli Anaerobic Blood Culture - Preliminary Gram negative bacilli 04/04/22 04/04/22 11:37 07:40 POC Glucose 89 86 Electrocardiogram Date: 04/03/22 Findings: + NSR @ (tachy) Chest X-Ray Date: 04/03/22 Findings: + pleural effusion (R)
[2022-04-04] MEDS ORDERED: ePHEDrine sulfate 50 MG/ML AMP IV PRN ×2 (12:32→13:08)
[2022-04-04] MEDS ORDERED: ATROPINE SULFATE 0.1 MG/ML 10ML SYR IV PRN ×2 (12:32→13:08)
[2022-04-04] MEDS ORDERED: ONDANSETRON INJ 2 MG/ML 2 ML VIAL IV PRN ×2 (12:32→13:08)
[2022-04-04] MEDS ORDERED: ONDANSETRON INJ 2 MG/ML 2 ML VIAL ONE (12:52)
[2022-04-04] MEDS ORDERED: PROPOFOL IV EMULSION 10 MG/ML 20 ML VIAL IV ONE (12:52)
[2022-04-04] MEDS ORDERED: fentaNYL citrate 100 MCG/2 ML VIAL ONE (12:52)
[2022-04-04] MEDS ORDERED: DEXAMETHASONE SOD INJ 4 MG/ML VIAL ONE (12:52)
[2022-04-04] MEDS ORDERED: MIDAZOLAM HCL 1 MG/ML 2ML VIAL ONE (12:52)
--- NOTE | 2022-04-04 13:23 | Gastrointestinal Consultation ---
Date of Consultation April 04, 2022 Assessment & Plan (1) Anemia: (2) Jaundice: (3) Anasarca: (4) Ascites: (5) Cholangiocarcinoma: Plan severe anemia in setting of hx stage 4 cholangiocarcinoma, there is a plan for patient to go on hospice however he would like to pursue an egd at this time to treat any ptoential gi bleed. recs: NPO risks/benefits and procedure discussed with patient, who agrees to proceed Proceed with EGD. supportive care consider palliative/therapeutic paracentesis patient appears agreeable to hospice after procedure is done, will defer to primary team Thank you for allowing me to participate in the care of this patient History of Present Illness Attending Physician: Erica Villanueva MD History of Present Illness 61 yo male here with stage IV cholangiocarcinoma, colon cancer, s/p whipple and chemo, last chemo sep 2021 here with anemia, abdominal distention and pain. hgb noted to be 5.5 on admission, he is severely jaundiced today and has severe abdominal distention. No hematochezia, hematemesis. CBC and CMP reviewed. Allergies Allergy/AdvReac Type Severity Reaction Status Date / Time oxycodone [From OxyContin] Allergy rash Verified 06/21/18 07:59 Home Medications Medication Instructions Recorded Confirmed Type multivitamin 1 cap PO QAM 06/21/18 04/03/22 History ferrous sulfate 325 mg (65 mg 325 mg PO BID 04/03/22 04/03/22 History iron) tablet furosemide 20 mg tablet 40 mg PO DAILY 04/03/22 04/03/22 History morphine 15 mg immediate release 15 mg PO Q4H PRN Pain 04/03/22 04/03/22 History tablet ondansetron HCl 8 mg tablet 8 mg PO Q8H PRN Nausea 04/03/22 04/03/22 History pantoprazole 40 mg tablet,delayed 40 mg PO DAILY 04/03/22 04/03/22 History release polyethylene glycol 3350 17 17 g PO DAILY PRN Constipation 04/03/22 04/03/22 History gram/dose oral powder rivaroxaban 20 mg tablet (Xarelto) 20 mg PO DAILY 04/03/22 04/03/22 History spironolactone 50 mg tablet 100 mg PO DAILY 04/03/22 04/03/22 History Patient History Medical History Cancer MASS BILE DUCT/LIVER PER PT Diabetes mellitus PRE DIABETIC Hx of pancreatitis Hyperlipidemia Osteoarthritis HX OF INJECTIONS AT C6-C7. PT CONTINUES TO HAVE SOME MILD NUMBNESS IN LEFT HAND AND LEFT 5TH DIGIT. Surgical History History of appendectomy History of colonoscopy History of ERCP Hx of vasectomy Nausea and vomiting after administration of anesthetic agent Social History Smoking Status: Never smoker Second Hand Exposure: No; Do You Dip or Chew Tobacco: No; Tobacco Cessation Education Requested by Patient: No Hx Alcohol Use: No Hx Substance Use: No Preferred Language: Persian Communication Ability: Effective Tissue Recovery Technician Required: No Beliefs That Will Affect Care: None Current Living Situation: Spouse Current Living Situation Comment: at home with Other Information That Helps Us Care for You: No Feels Safe at Home: Yes Safety Concerns: Feels Safe At This Time Assistive Devices: Cane and Walker Review of Systems Constitutional: no fever, no chills and no weight loss Eyes: as per Subjective / HPI Ear, Nose, Mouth, Throat: as per Subjective / HPI Respiratory: no dyspnea and no dyspnea on exertion Cardiovascular: no chest pain and no palpitations Gastrointestinal: as per Subjective / HPI Musculoskeletal: no joint pain and no swelling Integumentary: no rash and no lesions Neurologic: no numbness and no paresthesia Psychiatric: no depression and no anxiety Endocrine: no fatigue Hematologic / Lymphatic: no easy bleeding and no easy bruising Physical Exam Constitutional: WD/WN, vitals as above Eyes: EOM intact bilaterally Neck: normal visual inspection Respiratory: normal respiratory effort, lungs clear to auscultation Cardiovascular: RRR, no murmur, no edema Gastrointestinal (Abdomen): Inspection/Auscultation: abdomen normal to inspection and + abdomen distended Percussion/Palpation: abdomen soft; abdomen nontender and no hepatosplenomegaly Musculoskeletal: Extremities: no cyanosis Gait: normal gait Skin: no rashes, warm and dry Neurologic: moves all extremities Psychiatric: A+Ox3, euthymic affect Results & Data ([facility]) Vital Signs (Past 12 Hours) Vital Signs Temp Pulse Pulse Resp BP BP Pulse Ox 04/04/22 12:52 36.5 C 77 19 98/62 L 95 04/04/22 11:22 36.4 C L 75 19 94/64 L 95 04/04/22 09:00 04/04/22 08:49 66 04/04/22 06:42 36.6 C 71 18 99/61 L 95 04/04/22 03:22 36.4 C L 65 16 102/66 97 04/04/22 02:10 36.5 C 78 20 123/74 99 04/04/22 01:40 36.4 C L 70 16 110/63 94 04/04/22 01:25 36.6 C 74 20 101/64 94 04/04/22 01:58 04/04/22 01:19 89 O2 Del Method O2 Flow Rate 04/04/22 12:52 Room Air 04/04/22 11:22 Room Air 04/04/22 09:00 Nasal Cannula 2 04/04/22 08:49 04/04/22 06:42 Room Air 04/04/22 03:22 04/04/22 02:10 04/04/22 01:40 04/04/22 01:25 04/04/22 01:58 Room Air 04/04/22 01:19 PG Care Time/CCT Total # of Minutes Spent Total Time Spent with Patient: Total time spent is greater than 50% in coordination of care (as documented) at patient's floor/unit and/or counseling patient: Coding Level of Care Code 27534 Inpt Consult Level 4 Diagnoses Anemia D64.9 Anemia type: unspecified type Jaundice R17 Anasarca R60.1 Ascites R18.8 Ascites type: other type Cholangiocarcinoma C22.1 (1) Anemia Anemia type: unspecified type Qualified Code(s): D64.9 - Anemia, unspecified (2) Ascites Ascites type: other type Qualified Code(s): R18.8 - Other ascites
--- NOTE | 2022-04-04 13:37 | Hospitalist Progress Note ---
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 Cancer not amenable to further chemo, very poor prognosis, patient and his interested in exploring hospice option, will consult case management. Overall prognosis is very poor Awaiting discharge home with hospice (3) Anemia: Plan: On admission hemoglobin is noted to be 5.5 No evidence of hematemesis and or melena He received 2 units of PRBC Hemoglobin is 7.5 as of 04/04/2022 Appreciate GI input and recommendation Status post EGD which did not show any evidence of bleeding (4) Large bowel obstruction: Plan: Abdominal distention/pain--> large bowel obstruction Has abdominal distention with discomfort/pain No nausea no vomiting Bowel movement 3 days back Conservative management for bowel obstruction, pt w/ occasional nausea, no vomiting, last BM 7 days ago (liquid BM) and pt doesn't take food per PO---> consider surgery consult if hospice is not set up. (5) Pleural effusion: Plan: Right pleural effusion with possible atelectasis Pulmonary consulted for probable thoracentesis (6) Gram-negative bacteremia: Plan: Noted to have 2 out of 2 blood cultures for gram-negative bacilli Likely secondary to cholangitis given the history of cholangiocarcinoma Initially started on ceftriaxone and changed to Zosyn Await sensitivity Likely to need intravenous antibiotic for at least 2 weeks Plan DVT Px: Xarelto held, paracentesis eunice, SCDs DNR/DNI Dispo: Pt will benefit from Hospice care given advanced cancer with poor prognosis. Pt/family would like to explore hospice options. Admission and Anticipated Discharge Date Admission Date: April 03, 2022 Subjective 04/04/2022 The patient was seen and examined in medical telemetry unit He has been complaining of extreme weakness and tiredness Has abdominal discomfort with distention without any nausea and or vomiting Denies any shortness of breath Review of Systems Review of Systems: All systems reviewed and are unremarkable except as noted below Neurologic: Extremely weak and tired but alert, awake and oriented x3 Physical Exam Physical Exam: Lying in bed with drowsiness and depression Constitutional: + ill appearing, average body habitus and + thin Eyes: + conjunctival abnormality (Deeply jaundiced) ENMT: external ear and nose normal, oropharynx normal Neck: trachea midline, no thyromegaly Respiratory: no respiratory distress Auscultation: + diminished lung sounds and + crackles (Bibasilar crackles more on the right than the left) Cardiovascular: Rate/Rhythm: regular rate and regular rhythm; not tachycardic Heart Sounds: normal S1 and normal S2; no murmur Extremities: + edema (1-2+ edema bilaterally) Gastrointestinal (Abdomen): Inspection/Auscultation: + abdomen distended; + abnormal bowel sounds Percussion/Palpation: + abdomen tender and abdomen soft Musculoskeletal: No acute arthritis in any joint Skin: Has generalized bruising Neurologic: Alert, awake and oriented x3. Generally very weak and lethargic Lymphatic: no cervical or axillary lymphadenopathy Results & Data Results & Data ([facility]) Vital Signs (Past 12 Hours) Vital Signs Temp Pulse Pulse Resp BP BP Pulse Ox 04/04/22 12:52 36.5 C 77 19 98/62 L 95 04/04/22 11:22 36.4 C L 75 19 94/64 L 95 04/04/22 09:00 04/04/22 08:49 66 04/04/22 06:42 36.6 C 71 18 99/61 L 95 04/04/22 03:22 36.4 C L 65 16 102/66 97 04/04/22 02:10 36.5 C 78 20 123/74 99 04/04/22 01:40 36.4 C L 70 16 110/63 94 04/04/22 01:58 O2 Del Method O2 Flow Rate 04/04/22 12:52 Room Air 04/04/22 11:22 Room Air 04/04/22 09:00 Nasal Cannula 2 04/04/22 08:49 04/04/22 06:42 Room Air 04/04/22 03:22 04/04/22 02:10 04/04/22 01:40 04/04/22 01:58 Room Air Laboratory Results Short CBC 04/03/22 04/04/22 Range/Units 17:11 05:56 WBC 20.89 H 20.38 H (4.8-10.8) K/ul Hgb 5.5 L* 7.5 L (14.0-18.0) g/dl Hct 15.7 L* 20.8 L* (40.1-51.0) % Plt Count 72 L 56 L (130-400) K/uL BMP 04/03/22 04/04/22 17:11 05:56 Sodium 131 L 132 L Potassium 4.3 4.0 Chloride 103 104 Carbon Dioxide 17 L 19 L BUN 55 H 50 H Creatinine 0.93 0.84 Glucose 58 L 80 Calcium 7.4 L 7.0 L Liver Function 04/03/22 04/04/22 Range/Units 17:11 05:56 Total Bilirubin 13.2 H 12.3 H (0.2-1.0) mg/dl AST 61 H 52 H (13-39) U/L ALT 48 40 (7-52) U/L Alkaline Phosphatase 676 H 465 H (34-104) U/L Albumin 2.0 L 1.9 L (3.4-5.0) gm/dl Medications Administered Current Inpatient Medications Atropine Sulfate (Atropine Sulfate 0.1 Mg/Ml 10ml Syr) 0.5 mg IV Q1M PRN PRN Reason: PACU Use-HR<40 &/or Bradycardi Stop: 04/04/22 20:32 Atropine Sulfate (Atropine Sulfate 0.1 Mg/Ml 10ml Syr) 0.5 mg IV Q1M PRN PRN Reason: PACU Use-HR<40 &/or Bradycardi Stop: 04/04/22 21:08 Ephedrine Sulfate (Ephedrine Sulfate 50 Mg/Ml Amp) 5 mg IV Q5M PRN PRN Reason: PACU Use Only-SBP<90 mmHg Stop: 04/04/22 20:32 Ephedrine Sulfate (Ephedrine Sulfate 50 Mg/Ml Amp) 5 mg IV Q5M PRN PRN Reason: PACU Use Only-SBP<90 mmHg Stop: 04/04/22 21:08 Furosemide (Furosemide Inj 20 Mg/2 Ml Vial) 20 mg IV DAILY NADER Stop: 05/03/22 22:46 Last Admin: 04/04/22 00:09 Dose: Not Given Pantoprazole Sodium 40 mg/ (Syringe) 10 mls @ 5 mls/min IV BID NADER Stop: 05/03/22 20:59 Last Admin: 04/04/22 08:00 Dose: 5 mls/min Piperacillin Sod/Tazobactam (Sod 3.375 gm/ Dextrose) 115 mls @ 28.75 mls/hr IV Q8H [facility]; Protocol Stop: 04/18/22 11:59 Dextrose (D10w) 1,000 mls @ 0 mls/hr IV .Q0M PRN PRN Reason: protocol (see label comments) Stop: 05/04/22 09:56 Amino Acids/Dextrose 1,556 ml/ (Nutrition (Parenteral)) 1,556 mls @ 70 mls/hr IV .[id number] [facility]; Protocol Stop: 04/05/22 04:00 Fat Emulsion-[place] Oil/Soybean Oil (Clinolipid 20% Iv Fat Emulsion) 250 mls @ 41.667 mls/hr IV .Q6H [facility] Stop: 04/04/22 21:59 Miscellaneous (Stop Clinolipid) 1 each N/A DAILY@2200 [facility] Stop: 05/04/22 21:59 Miscellaneous (Tpn Rate Change) 1 each N/A DAILY@1700 [facility] Stop: 05/04/22 16:59 Miscellaneous (Tpn Rate Change) 1 each N/A DAILY@0300 [facility] Stop: 05/05/22 02:59 Miscellaneous (Stop Tpn) 1 each N/A DAILY@0400 [facility] Stop: 05/05/22 03:59 Miscellaneous Information (Tpn/Ppn Consult Pharmacy) 1 each N/A UD PRN PRN Reason: Consult Stop: 05/03/22 20:18 Morphine Sulfate (Morphine Sulfate 4 Mg/Ml 1 Ml Carp\Vial) 4 mg IV Q6H PRN PRN Reason: Pain Stop: 04/18/22 08:07 Last Admin: 04/04/22 10:31 Dose: 4 mg Ondansetron HCl (Ondansetron Inj 2 Mg/Ml 2 Ml Vial) 4 mg IV Q6H PRN PRN Reason: nausea, vomiting Stop: 05/03/22 20:14 Ondansetron HCl (Ondansetron Inj 2 Mg/Ml 2 Ml Vial) 4 mg IV ONCE PRN PRN Reason: PACU Use Only-Nausea/Vomiting Stop: 04/04/22 20:32 Ondansetron HCl (Ondansetron Inj 2 Mg/Ml 2 Ml Vial) 4 mg IV ONCE PRN PRN Reason: PACU Use Only-Nausea/Vomiting Stop: 04/04/22 21:08 Spironolactone (Spironolactone 100 Mg Tab) 100 mg PO [facility] Stop: 05/04/22 08:59 Last Admin: 04/04/22 08:00 Dose: 100 mg (1) Anemia Anemia type: unspecified type Qualified Code(s): D64.9 - Anemia, unspecified
--- NOTE | 2022-04-04 13:47 | Procedure Note ---
Procedure Note Date of Service April 04, 2022 Note gi brief procedure note EGD findings: s/p whipple procedure, normal examined stomach and duodenal loops. normal esophagus. recs: supportive care diet as tolerated consider palliative paracentesis consider hospice, will defer to primary team Vaughn Richard MD Gastroenterology Coding
--- NOTE | 2022-04-04 13:52 | GI REPORT ---
Patient Name: Jose Marques Procedure Date: 04/04/2022 1:28 PM Date of : 1960 Admit Type: Inpatient Age: 61 Gender: Male Attending MD: Vaughn Richard MD Procedure: Upper GI endoscopy Providers: Vaughn Richard MD Referring MD: Erica Payan Indications: Unexplained iron deficiency anemia Medicines: Monitored Anesthesia Care Complications: No immediate complications. Estimated blood loss: None. Estimated Blood Loss: Estimated blood loss: none. Procedure: Pre-Anesthesia Assessment: - Prior Anticoagulants: The patient has taken no previous anticoagulant or antiplatelet agents. - ASA Grade Assessment: III - A patient with severe systemic disease. After obtaining informed consent, the endoscope was passed under direct vision. Throughout the procedure, the patient's blood pressure, pulse, and oxygen saturations were monitored continuously. The Endoscope was introduced through the mouth, and advanced to the second part of duodenum. The upper GI endoscopy was accomplished without difficulty. The patient tolerated the procedure well. Findings: The examined esophagus was normal. The entire examined stomach was normal. surgical changes consistent with past whipple procedure were noted. The examined duodenum was normal. Impression: - Normal esophagus. - Normal stomach. - Normal examined duodenum. - No specimens collected. Recommendation: - Return patient to [facility] for [facility] care. supportive care diet as tolerated consider palliative paracentesis consider hospice, will defer to primary team Vaughn Richard MD 04/04/2022 1:52:02 PM This report has been signed electronically. Note Initiated On: 04/04/2022 1:28 PM Number of Addenda: 0 I attest to the content of the Intraoperative Record and orders documented therein, exceptions below {[id number]}
--- NOTE | 2022-04-04 14:34 | Anesthesiology Progress Note ---
Date of Service April 04, 2022 Anesthesia Post Procedure Vital Signs Vital Signs: Temp Pulse Pulse Resp BP BP Pulse Ox 04/04/22 14:25 82 19 106/63 92 04/04/22 14:15 95 H 18 98/62 L 92 04/04/22 14:06 97.3 F L 96 H 21 107/64 92 04/04/22 12:52 97.7 F 77 19 98/62 L 95 04/04/22 11:22 97.5 F L 75 19 94/64 L 95 04/04/22 09:00 04/04/22 08:49 66 04/04/22 06:42 97.9 F 71 18 99/61 L 95 04/04/22 03:22 97.5 F L 65 16 102/66 97 04/04/22 02:10 97.7 F 78 20 123/74 99 04/04/22 01:40 97.5 F L 70 16 110/63 94 04/04/22 01:25 97.9 F 74 20 101/64 94 04/04/22 01:58 04/04/22 01:19 89 04/04/22 01:07 97.7 F 64 18 112/64 94 04/04/22 00:20 97.5 F L 68 22 98/53 L 94 04/03/22 23:34 98.1 F 87 18 101/52 L 95 04/03/22 23:14 97.5 F L 76 16 81/48 L 91 04/03/22 23:27 73 81/48 L 04/03/22 22:14 98.1 F 86 18 88/51 L 95 04/03/22 22:12 97.9 F 89 18 91/51 L 94 04/03/22 21:44 97.9 F 88 17 98/58 L 94 04/03/22 21:29 98.1 F 90 17 91/56 L 94 04/03/22 21:25 98.2 F 91 H 18 88/51 L 94 04/03/22 21:21 90 18 94/53 L 94 04/03/22 21:08 97.5 F L 93 H 15 100/59 L 94 04/03/22 20:00 90 17 95/55 L 95 04/03/22 18:51 92 H 16 97/49 L 95 04/03/22 18:30 107 H 20 90/47 L 94 04/03/22 16:23 91 04/03/22 17:14 111 H 20 101/57 L 94 04/03/22 16:18 98.1 F 105 H 22 104/64 100 O2 Del Method O2 Flow Rate 04/04/22 14:25 Nasal Cannula 4 04/04/22 14:15 Oxymask 7 04/04/22 14:06 Oxymask 7 04/04/22 12:52 Room Air 04/04/22 11:22 Room Air 04/04/22 09:00 Nasal Cannula 2 04/04/22 08:49 04/04/22 06:42 Room Air 04/04/22 03:22 04/04/22 02:10 04/04/22 01:40 04/04/22 01:25 04/04/22 01:58 Room Air 04/04/22 01:19 04/04/22 01:07 04/04/22 00:20 04/03/22 23:34 Room Air 04/03/22 23:14 0 04/03/22 23:27 04/03/22 22:14 0 04/03/22 22:12 2 04/03/22 21:44 2 04/03/22 21:29 2 04/03/22 21:25 2 04/03/22 21:21 Nasal Cannula 2 04/03/22 21:08 2 04/03/22 20:00 Nasal Cannula 2 04/03/22 18:51 Nasal Cannula 2 04/03/22 18:30 Room Air 04/03/22 16:23 Room Air 04/03/22 17:14 Room Air 04/03/22 16:18 Room Air Transfer of Care Handoff Completed per policy Notes Mental Status: alert / awake / arousable and participated in evaluation Patient Amnestic to Procedure: Yes Nausea / Vomiting: adequately controlled Pain: adequately controlled Airway Patency, RR, SpO2: stable & adequate BP & HR: stable & adequate Hydration State: stable & adequate Anesthetic Complications: no major complications apparent and Pt Satisfied with anesthetic care
--- NOTE | 2022-04-04 14:40 | Communication Note ---
Date of Service: April 04, 2022 Pulm is consulted by the primary service for a palliative thoracentesis. Patient was taken urgently to EGD per nursing for concerns of an upper GI bleed. Will reevaluate tomorrow need for thora tomorrow. It is my understanding the patient received Xarelto yesterday. Would hold any further anticoagulation at this time. I think the patient would benefit more from a paracentesis as the pleural fluid will simply reaccumulate because it is likely a hydrothorax due to the massive ascites. Would recommend the primary team discuss paracentesis with gastroenterology who is already following the patient.
--- NOTE | 2022-04-04 15:24 | Pharmacy Report ---
Pharmacy PN Initial Consult - Date of Service April 04, 2022 - Scope Pharmacy has been consulted to manage parenteral nutrition orders and order appropriate labs. As part of the Nutrition Support Team guidelines, pharmacy will work in conjunction with dietary when determining the patients caloric needs. - Subjective The patient is a 61 year old M admitted on 04/03/22 19:09 for ANEMIA. Patient is to receive parenteral nutrition for chronic TPN at home secondary to Stage IV Cholangiocarcinoma. Pertinent PMH: - Cholangiocarcinoma s/p whipple procedure - Objective Height: 6 ft 1 in Weight: 85 kg Diet: NPO Vascular Access:: * PICC Intake & Output (Last 24Hrs): Intake & Output 04/02/22 04/03/22 04/04/22 04/05/22 06:59 06:59 06:59 06:59 Intake Total 2040 / 2040 320 / 320 Output Total 450 / 450 300 / 300 Balance 1590 / 1590 20 / 20 Weight 85 kg 85 kg Laboratory Data (Last 24 Hrs):: 04/03/22 04/04/22 17:11 05:56 Sodium 131 L 132 L Potassium 4.3 4.0 Chloride 103 104 Carbon Dioxide 17 L 19 L BUN 55 H 50 H Creatinine 0.93 0.84 Glucose 58 L 80 Calcium 7.4 L 7.0 L Phosphorus 4.3 Magnesium 2.1 2.2 Total Bilirubin 13.2 H 12.3 H AST 61 H 52 H ALT 48 40 Alkaline Phosphatase 676 H 465 H Albumin 2.0 L 1.9 L Triglycerides 144 Nutrition Assessment:: Please refer to the Notes section of the EMR for the most recent supply and distribution manager note. - Assessment * 61 yo M on chronic TPN at home. Spoke with patient and . Gets home TPN via [facility]. Reached out to [facility] today and had last formula faxed over to us. Per this formula, patient gets the following at home: * Amino acids 120 grams/day * Dextrose 400 grams/day * Lipids 60 grams/day * Sodium phosphate 52 MMol/day * Sodium chloride 31 mEq/day * Sodium acetate 50 mEq/day * Potassium chloride 106 mEq/day * Magnesium sulfate 24 mEq/day * Multivitamins 10 mL (only on Mon, Wed, Fri) * Trace Elements 1 mL * Total Volume: 2000 mL * Total kCal: 2440 * Patient states he runs this cyclically at home from [id number] with a one hour taper up and one hour taper down. [id number] * Will decrease the amount of dextrose in the TPN per registered dietitians note. Will also be more conservative with electrolytes until it is clear what the patient requires. - Plan For day 1 of TPN administration, the following will be ordered: Macronutrients Amino acids 115 grams/day Dextrose 202 grams/day Lipids 50 grams/day Micronutrients Combined electrolytes mL - contains 35 mEq Na, 20 meq K, 4.5 mEq Ca, 5 mEq Mg, 35 mEq Cl, 29.5 mEq acetate per 20 mL Sodium phosphate 21 MMol Sodium chloride 50 mEq Sodium acetate 50 mEq Potassium phosphate mMol Potassium chloride 50 mEq Potassium acetate 50 mEq Magnesium sulfate 12.18 mEq Calcium gluconate 4.65 mEq Trace Elements 1 mL Total volume 1556 mL to be infused over 12 hrs will provide 1646 kcal/day * From 1600 to 1700: run at 70 mL/hr * From 1700 to 0300: run at 140 mL/hr * From 0300 to 0400: run at 70 mL/hr Labs to be ordered per PN order protocol Pharmacy will follow and adjust parenteral nutrition orders on a daily basis. Thank you.
[2022-04-04] MEDS ORDERED: SOD PHOSPHATE/SOD BIPHOSPHATE ENEMA 132 ML BTL PR STA (15:50)
[2022-04-04] MEDS ORDERED: [UNRECOGNIZED DRUG - OTHER] IV SCH (16:00)
[2022-04-04] MEDS ORDERED: CLINOLIPID 20% IV FAT EMULSION 250 ML IV SCH (16:00)
[2022-04-04] MEDS ORDERED: AMINO ACID 8% IV SCH (16:00)
[2022-04-04] MEDS ORDERED: CENTRAL TPN IV SCH (16:00)
[2022-04-04] MEDS: cefTRIAXone SODIUM 2,000 MG in DEXTROSE 5% 50 ML IV SCH (16:22)
[2022-04-04] MEDS ORDERED: TPN RATE CHANGE SCH (17:00)
[2022-04-04] MEDS ORDERED: Nursing to Pharmacy Communication SCH (17:15)
[2022-04-04] MEDS ORDERED: STOP CLINOLIPID SCH (22:00)
[2022-04-04] MEDS: ONDANSETRON INJ 2 MG/ML 2 ML VIAL IV PRN (22:45)
[2022-04-05] MEDS ORDERED: TPN RATE CHANGE SCH (03:00)
[2022-04-05] MEDS ORDERED: [UNRECOGNIZED DRUG - REMARK] SCH (04:00)
[2022-04-05 07:01] LABS: Hemoglobin 7.8 g/dl (14.0-18.0); Mean Corpuscular Hemoglobin 27.1 pg (25.0-34.0); Mean Corpuscular Hgb Conc 35.5 g/dL (32.0-36.0); Mean Corpuscular Volume 76.4 fL (80.0-100.0); RDW Coefficient of Variation 18.4 % (11.5-14.5); RDW Standard Deviation 50.5 fL (36.4-46.3); Red Blood Count 2.88 M/uL (4.63-6.08); White Blood Count 15.02 K/ul (4.8-10.8)
[2022-04-05 07:24] LABS: Albumin Globulin Ratio 0.6 (0.9-2); Albumin Level 1.8 gm/dl (3.4-5.0); BUN Creatinine Ratio 56.7 (10-20); Bilirubin,Total 12.5 mg/dl (0.2-1.0); Calcium 7.2 mg/dl (8.5-10.1); Creatinine Clr Calc Pharmacy 85.4 ml/min; Est GFR (Non-African American) 77.7 ml/min; Globulin 3.2 gm/dl (2.5-4.0); Magnesium 2.3 mg/dl (1.7-2.4); Phosphorus 4.6 mg/dl (2.5-4.9); Potassium 3.8 mmol/L (3.5-5.1)
[2022-04-05 07:34] LABS: Basophils # (auto) 0.02 K/uL (0-0.2); Basophils % (auto) 0.1 %; Echinocytes 1+; Hypochromasia Present; Immature Granulocytes # (auto) 0.17 K/uL (0.00-0.02); Immature Granulocytes % (auto) 1.1 %; Lymphocytes # (auto) 0.51 K/uL (1.2-3.4); Lymphocytes % (auto) 3.4 %; Macrocytosis Present; Monocytes # (auto) 0.59 K/uL (0.24-0.82); Monocytes % (auto) 3.9 %; Neutrophils # (auto) 13.73 K/uL (1.4-6.5); Neutrophils % (auto) 91.5 %; Platelet Count 68 K/uL (130-400); Polychromasia 1+; Target Cells 2+; Toxic Granulation 1+
[2022-04-05] MEDS: MoRPHine SULFATE 4 MG/ML 1 ML CARP\\VIAL IV PRN ×3 (08:04→20:01)
[2022-04-05] MEDS: FUROSEMIDE INJ 20 MG/2 ML VIAL IV SCH (09:39)
[2022-04-05] MEDS: PANTOprazole 40 MG in SYRINGE 0 ML IV SCH ×2 (09:39→20:03)
[2022-04-05] MEDS: SPIRONOLACTONE 100 MG TAB PO SCH (09:47)
--- NOTE | 2022-04-05 12:48 | Procedure Note ---
Procedure Note Date of Service April 05, 2022 Note Procedure: Diagnostic and/or therapeutic ultrasound-guided catheter thoracentesis Manager Strategic Marketing: Dr. Lucio Langston Indication: Pleural effusion Consent: Signed by patient and verified with timeout prior to procedure Anesthesia: 8 mL's of 1% lidocaine without epinephrine given locally Procedure: Consent was verified and timeout performed. Appropriate imaging studies were reviewed prior to the procedure. Patient was placed in a seated position and limited thoracic ultrasound was performed of the right chest. See separate imaging. The site appropriate for thoracentesis was selected. The skin was prepped and draped in normal sterile fashion. Lidocaine was used for local analgesia. Fluid was aspirated via the finder needle. A small skin donato was made with the scalpel and the catheter over the needle apparatus was advanced over the rib into the pleural space. Using the syringe one-way valve system, a total of 1.9 liters of yellow-colored fluid was removed. Procedure was terminated due to lack of flow. The catheter was removed and observed to be intact. A sterile dressing was applied. Post procedure chest x-ray was ordered. Fluid was sent for LDH, total protein, cell count, glucose, pH, cytology, AFB cultures, gram stain and culture and fungal cultures. The patient tolerated the procedure well without obvious complication. Small apical pneumothorax noted post chest x-ray. Coding CPT Codes Pulmonary/Thoracic - Pulmonary and Thoracic: 41634 Thoracentesis w imaging ([id number]) [facility] [place] Procedure Codes (Charges) Pulmonary/Thoracic Procedure 1: Pulmonary and Thoracic: 18565 Thoracentesis w imaging
[2022-04-05] MEDS ORDERED: ALBUMIN 25% 12.5 GM/50 ML VIAL IV ONE (13:15)
[2022-04-05 14:11] LABS: Glucose Pleural Fluid 76 mg/dl; LDH Pleural Fluid 128 U/L; Total Protein Pleural Fluid < 3.0 gm/dl
--- NOTE | 2022-04-05 14:30 | Hospitalist Progress Note ---
Date of Service April 05, 2022 Assessment & Plan (1) Anasarca: Plan: Patient coming in with worsening abdominal pain/distention since last 2 weeks [employer] [employer] Noted to have severe edema involving the upper and lower extremities and also ascites Has anasarca contributed by cholangiocarcinoma and low albumin Abdominal paracentesis has been ordered (2) Cholangiocarcinoma: Plan: Stage IV cholangiocarcinoma Admitting CTAP: Suggestive of large bowel obstruction, volume overload with anasarca and large ascites and large right pleural effusion, progressively worsened intrahepatic biliary ductal dilatation. Cancer not amenable to further chemo, very poor prognosis, patient and his interested in exploring hospice option, will consult case management. Overall prognosis is very poor Awaiting discharge home with hospice He refused TPN (3) Anemia: Plan: On admission hemoglobin is noted to be 5.5 No evidence of hematemesis and or melena He received 2 units of PRBC Hemoglobin is 7.5 as of 04/04/2022 Appreciate GI input and recommendation Status post EGD which did not show any evidence of bleeding (4) Large bowel obstruction: Plan: Abdominal distention/pain--> large bowel obstruction Has abdominal distention with discomfort/pain No nausea no vomiting Bowel movement 3 days back Conservative management for bowel obstruction, pt w/ occasional nausea, no vomiting, last BM 7 days ago (liquid BM) and pt doesn't take food per PO---> consider surgery consult if hospice is not set up. Status post Fleet enema without any effect (5) Pleural effusion: Plan: Right pleural effusion with possible atelectasis Pulmonary consulted for probable thoracentesis Has had 1.9 L thoracentesis on 04/05/2022 (6) Gram-negative bacteremia: Plan: Noted to have 2 out of 2 blood cultures for gram-negative bacilli Likely secondary to cholangitis given the history of cholangiocarcinoma Initially started on ceftriaxone and changed to Zosyn Await sensitivity Likely to need intravenous antibiotic for at least 2 weeks No fever and or chills Plan DVT Px: Xarelto held, paracentesis eunice, SCDs DNR/DNI Dispo: Pt will benefit from Hospice care given advanced cancer with poor prognosis. Pt/family would like to explore hospice options. Prognosis remains extremely poor Admission and Anticipated Discharge Date Admission Date: April 03, 2022 Subjective 04/04/2022 The patient was seen and examined in medical telemetry unit He has been complaining of extreme weakness and tiredness Has abdominal discomfort with distention without any nausea and or vomiting Denies any shortness of breath 04/05/2022 The patient was seen and examined in medical telemetry unit He has been remained very weak and lethargic He refused to have TPN and has been having nausea with vomiting on oral intake His bowel has not moved but denies any abdominal distention more than usual or any pain Review of Systems Review of Systems: All systems reviewed and are unremarkable except as noted below Neurologic: Extremely weak and tired but alert, awake and oriented x3 Physical Exam Physical Exam: Lying in bed with drowsiness and depression Constitutional: + ill appearing, average body habitus and + thin Eyes: + conjunctival abnormality (Deeply jaundiced) ENMT: external ear and nose normal, oropharynx normal Neck: trachea midline, no thyromegaly Respiratory: no respiratory distress Auscultation: + diminished lung sounds and + crackles (Bibasilar crackles more on the right than the left) Cardiovascular: Rate/Rhythm: regular rate and regular rhythm; not tachycardic Heart Sounds: normal S1 and normal S2; no murmur Extremities: + edema (1-2+ edema bilaterally) Gastrointestinal (Abdomen): Inspection/Auscultation: + abdomen distended; + abnormal bowel sounds Percussion/Palpation: + abdomen tender and abdomen soft Musculoskeletal: No acute arthritis in any joint Neurologic: Alert, awake and pleasantly confused. Generally weak and lethargic Lymphatic: no cervical or axillary lymphadenopathy Results & Data Results & Data ([facility]) Vital Signs (Past 12 Hours) Vital Signs Temp Pulse Pulse Resp BP Pulse Ox O2 Del Method 04/05/22 11:37 36.7 C 106 H 19 98/65 L 94 Nasal Cannula 04/05/22 09:00 Nasal Cannula 04/05/22 08:52 36.6 C 87 17 103/66 94 Nasal Cannula 04/05/22 07:48 84 04/05/22 04:00 36.6 C 82 20 96/61 L 95 Nasal Cannula O2 Flow Rate 04/05/22 11:37 2 04/05/22 09:00 2 04/05/22 08:52 2 04/05/22 07:48 04/05/22 04:00 3 Laboratory Results Short CBC 04/05/22 Range/Units 06:46 WBC 15.02 H (4.8-10.8) K/ul Hgb 7.8 L (14.0-18.0) g/dl Hct 22.0 L (40.1-51.0) % Plt Count 68 L (130-400) K/uL BMP 04/05/22 06:46 Sodium 133 L Potassium 3.8 Chloride 106 Carbon Dioxide 19 L BUN 59 H Creatinine 1.04 Glucose 80 Calcium 7.2 L Liver Function 04/05/22 Range/Units 06:46 Total Bilirubin 12.5 H (0.2-1.0) mg/dl AST 67 H (13-39) U/L ALT 45 (7-52) U/L Alkaline Phosphatase 416 H (34-104) U/L Albumin 1.8 L (3.4-5.0) gm/dl Medications Administered Current Inpatient Medications Furosemide (Furosemide Inj 20 Mg/2 Ml Vial) 20 mg IV DAILY NADER Stop: 05/03/22 22:46 Last Admin: 04/05/22 09:39 Dose: 20 mg Heparin Sodium (Beef Lung) (Heparin 10 Unit/Ml 5 Ml Flush) 10 ml FLUSH PRN PRN PRN Reason: Flush Stop: 05/04/22 17:17 Last Admin: 04/05/22 09:40 Dose: 5 ml Pantoprazole Sodium 40 mg/ (Syringe) 10 mls @ 5 mls/min IV BID NADER Stop: 05/03/22 20:59 Last Admin: 04/05/22 09:39 Dose: 5 mls/min Dextrose (D10w) 1,000 mls @ 0 mls/hr IV .Q0M PRN PRN Reason: protocol (see label comments) Stop: 05/04/22 09:56 Fat Emulsion-[place] Oil/Soybean Oil (Clinolipid 20% Iv Fat Emulsion) 250 mls @ 41.667 mls/hr IV .Q6H NADER Last Admin: 04/04/22 16:40 Dose: Not Given Ceftriaxone Sodium 2,000 mg/ (Dextrose) 70 mls @ 140 mls/hr IV Q24H NADER; Protocol Stop: 04/18/22 15:59 Last Infusion: 04/04/22 17:15 Dose: Infused Miscellaneous (Stop Clinolipid) 1 each N/A DAILY@2200 NADER Stop: 05/04/22 21:59 Last Admin: 04/04/22 19:44 Dose: Not Given Miscellaneous (Tpn Rate Change) 1 each N/A DAILY@1700 [facility] Stop: 05/04/22 16:59 Last Admin: 04/04/22 16:41 Dose: Not Given Miscellaneous (Tpn Rate Change) 1 each N/A DAILY@0300 [facility] Stop: 05/05/22 02:59 Last Admin: 04/04/22 19:45 Dose: Not Given Miscellaneous (Stop Tpn) 1 each N/A DAILY@0400 [facility] Stop: 05/05/22 03:59 Last Admin: 04/04/22 20:55 Dose: Not Given Miscellaneous Information (Tpn/Ppn Consult Pharmacy) 1 each N/A UD PRN PRN Reason: Consult Stop: 05/03/22 20:18 Morphine Sulfate (Morphine Sulfate 4 Mg/Ml 1 Ml Carp\Vial) 4 mg IV Q6H PRN PRN Reason: Pain Stop: 04/18/22 08:07 Last Admin: 04/05/22 13:59 Dose: 4 mg Ondansetron HCl (Ondansetron Inj 2 Mg/Ml 2 Ml Vial) 4 mg IV Q6H PRN PRN Reason: nausea, vomiting Stop: 05/03/22 20:14 Last Admin: 04/04/22 22:45 Dose: 4 mg Spironolactone (Spironolactone 100 Mg Tab) 100 mg PO QAM [facility] Stop: 05/04/22 08:59 Last Admin: 04/05/22 09:47 Dose: Not Given (1) Anemia Anemia type: unspecified type Qualified Code(s): D64.9 - Anemia, unspecified
[2022-04-05 14:37] LABS: Appearance Pleural Fluid Hazy; Color Pleural Fluid Straw; RBC Pleural Fluid (A) 2000 /uL; Source Pleural Fluid Right Lung; WBC Pleural Fluid (A) 1086 /uL
--- NOTE | 2022-04-05 14:58 | XRay Report ---
XR chest 1V portable HISTORY: 61 years-old Male s/p thora follow-up study in a patient with right pleural effusion COMPARISON: Chest radiograph 04/03/2020 TECHNIQUE: AP view of the chest FINDINGS: Cardiomediastinal and hilar silhouettes are unchanged. Stable positioning of the right IJ Infuse-a-Po rt catheter and left-sided PICC. Small pleural effusions are present. There is decreased size of the right pleural effusion status post thoracentesis. Persistent right basilar predominant consolidation. Probable tiny right apical pneumothorax. Degenerative changes of the shoulders and spine. IMPRESSION: 1. Status post right-sided thoracentesis with decrease size of the right pleural effusion. 2. Tiny postprocedure right apical pneumothorax. 3. Persistent right basilar consolidation. ACT 112: Negative or not required by law. The above report was generated using voice recognition software. It may contain grammatical, syntax o r spelling errors. Electronically signed by: Justin Guzman M.D. 04/05/2022 2:56 PM
--- NOTE | 2022-04-05 15:43 | Pulmonary Consultation ---
Date of Consultation April 05, 2022 Assessment & Plan (1) Hydrothorax: Patient has a large right pleural effusion which I drained. 1.9 L of fluid was removed. This will be sent for culture, cytology and cell counts. This represents a hydrothorax secondary to the patient's massive ascites. Would recommend drainage of the ascitic fluid and consideration of a Pleurx catheter in the abdomen for palliative reasons. Will defer to GI and radiology. No indication for Pleurx in the chest at this time as the culprit for the effusion is the abdominal ascites which is likely from the malignancy. He has a small right apical pneumothorax. This should reabsorb with time. No further intervention needed. (2) Ascites: Suspect likely malignant ascites due to peritoneal implants. Patient and family would like to pursue hospice which I think is completely reasonable given his advanced disease. Ascites type: other type Qualified Code(s): R18.8 - Other ascites Plan Pulmonary to sign off. Please call with questions. Thank you. History of Present Illness Reason for Consultation: Right pleural effusion Attending Physician: Erica Villanueva MD History of Present Illness 61-year-old male with a history of cholangiocarcinoma stage IV who presented to the hospital due to increasing weakness and shortness of breath. He was found to have massive ascites on CT abdomen and a large right pleural effusion. He is very weak. Appetite is poor. is present at bedside. Patient denies any prior history of paracentesis and thoracentesis. He denies any cough. No feve rs or chills. I performed a right thoracentesis at bedside today removed 1.9 L of pleural fluid. He felt mildly better post drainage. Post procedure chest x- ray demonstrates a small apical pneumothorax with significant decrease in the right pleural effusion. Allergies Allergy/AdvReac Type Severity Reaction Status Date / Time oxycodone [From OxyContin] Allergy rash Verified 06/21/18 07:59 Home Medications Medication Instructions Recorded Confirmed Type multivitamin 1 cap PO QAM 06/21/18 04/03/22 History ferrous sulfate 325 mg (65 mg 325 mg PO BID 04/03/22 04/03/22 History iron) tablet furosemide 20 mg tablet 40 mg PO DAILY 04/03/22 04/03/22 History morphine 15 mg immediate release 15 mg PO Q4H PRN Pain 04/03/22 04/03/22 History tablet ondansetron HCl 8 mg tablet 8 mg PO Q8H PRN Nausea 04/03/22 04/03/22 History pantoprazole 40 mg tablet,delayed 40 mg PO DAILY 04/03/22 04/03/22 History release polyethylene glycol 3350 17 17 g PO DAILY PRN Constipation 04/03/22 04/03/22 History gram/dose oral powder rivaroxaban 20 mg tablet (Xarelto) 20 mg PO DAILY 04/03/22 04/03/22 History spironolactone 50 mg tablet 100 mg PO DAILY 04/03/22 04/03/22 History Patient History Medical History (Updated 04/05/22 @ 15:40 by Lucio Langston MD) Cancer MASS BILE DUCT/LIVER PER PT Diabetes mellitus PRE DIABETIC Hx of pancreatitis Hydrothorax Hyperlipidemia Osteoarthritis HX OF INJECTIONS AT C6-C7. PT CONTINUES TO HAVE SOME MILD NUMBNESS IN LEFT HAND AND LEFT 5TH DIGIT. Surgical History History of appendectomy History of colonoscopy History of ERCP Hx of vasectomy Nausea and vomiting after administration of anesthetic agent Social History Smoking Status: Never smoker Second Hand Exposure: No; Do You Dip or Chew Tobacco: No; Tobacco Cessation Education Requested by Patient: No Hx Alcohol Use: No Hx Substance Use: No Preferred Language: [place] Communication Ability: Effective [employer] Required: No Beliefs That Will Affect Care: None marital status: Current Living Situation: Spouse Current Living Situation Comment: at home with How many Children do You have: 1 Other Information That Helps Us Care for You: No Feels Safe at Home: Yes Safety Concerns: Feels Safe At This Time Assistive Devices: Bedside Commode, Cane, Walker and Other Assistive Devices Comment: adjustable bed Review of Systems Review of Systems: All systems reviewed & are unremarkable except as noted in HPI & below Physical Exam Physical Exam: Constitutional: Chronically ill and cachectic appearing male with jaundice diffusely. Eyes: Pupils are equal round and reactive to light. Conjunctivae are normal. Anicteric sclera. Ears nose, mouth and throat: Deferred. Neck: Trachea is midline. Visual inspection is normal. Respiratory: Diminished bilaterally. Cardiovascular: Regular rate and rhythm. No murmurs. No edema. Gastrointestinal: Fluid wave present. No tenderness. Musculoskeletal: Diffusely weak Skin: No rashes, warm dry and intact. Neurologic: No obvious focal neurological deficits seen. Psychiatric: Alert and oriented x3 with a euthymic affect. Results & Data Results & Data ([facility]) Vital Signs (Past 12 Hours) Vital Signs Temp Pulse Pulse Resp BP Pulse Ox O2 Del Method 04/05/22 15:12 80 04/05/22 11:37 36.7 C 106 H 19 98/65 L 94 Nasal Cannula 04/05/22 09:00 Nasal Cannula 04/05/22 08:52 36.6 C 87 17 103/66 94 Nasal Cannula 04/05/22 07:48 84 04/05/22 04:00 36.6 C 82 20 96/61 L 95 Nasal Cannula O2 Flow Rate 04/05/22 15:12 04/05/22 11:37 2 04/05/22 09:00 2 04/05/22 08:52 2 04/05/22 07:48 04/05/22 04:00 3 PG Care Time/CCT Total # of Minutes Spent Total Time Spent with Patient: Total time spent is greater than 50% in coordination of care (as documented) at patient's floor/unit and/or counseling patient: Coding Level of Care Code 59161 Inpt Consult Level 4 Diagnoses Hydrothorax J94.8 Ascites R18.8 Ascites type: other type
[2022-04-05 16:06] LABS: Lymphocytes, Fluid 8 %; Mono,Macrophage,Mesothelial 11 %; Neutrophils, Fluid 81 %
[2022-04-05] MEDS: cefTRIAXone SODIUM 2,000 MG in DEXTROSE 5% 50 ML IV SCH (17:00)
[2022-04-05] MEDS ORDERED: Nursing to Pharmacy Communication SCH (17:00)
[2022-04-06 06:38] LABS: Hematocrit (blood only) 22.5 % (40.1-51.0); Mean Corpuscular Hgb Conc 35.6 g/dL (32.0-36.0); RDW Coefficient of Variation 18.6 % (11.5-14.5); RDW Standard Deviation 51.1 fL (36.4-46.3); Red Blood Count 2.96 M/uL (4.63-6.08); White Blood Count 11.83 K/ul (4.8-10.8)
[2022-04-06 06:42] LABS: Platelet Count 75 K/uL (130-400)
[2022-04-06 07:05] LABS: BUN Creatinine Ratio 55.3 (10-20); Calcium 7.5 mg/dl (8.5-10.1); Creatinine Clr Calc Pharmacy 86.2 ml/min; Est GFR (African American) 91.1 ml/min; Est GFR (Non-African American) 78.6 ml/min; Magnesium 2.2 mg/dl (1.7-2.4); Phosphorus 4.3 mg/dl (2.5-4.9); Potassium 3.4 mmol/L (3.5-5.1)
[2022-04-06 07:07] LABS: Basophils # (auto) 0.02 K/uL (0-0.2); Basophils % (auto) 0.2 %; Eosinophils # (auto) 0.01 K/uL (0-0.50); Eosinophils % (auto) 0.1 %; Immature Granulocytes % (auto) 0.8 %; Lymphocytes # (auto) 0.44 K/uL (1.2-3.4); Lymphocytes % (auto) 3.7 %; Monocytes # (auto) 0.43 K/uL (0.24-0.82); Monocytes % (auto) 3.6 %; Neutrophils # (auto) 10.83 K/uL (1.4-6.5); Neutrophils % (auto) 91.6 %
[2022-04-06] MEDS: ONDANSETRON INJ 2 MG/ML 2 ML VIAL IV PRN (08:11)
[2022-04-06] MEDS: PANTOprazole 40 MG in SYRINGE 0 ML IV SCH ×2 (08:12→21:40)
[2022-04-06] MEDS: FUROSEMIDE INJ 20 MG/2 ML VIAL IV SCH (08:12)
[2022-04-06] MEDS: MoRPHine SULFATE 4 MG/ML 1 ML CARP\\VIAL IV PRN (08:14)
[2022-04-06] MEDS: SPIRONOLACTONE 100 MG TAB PO SCH (08:22)
[2022-04-06] MEDS ORDERED: POTASSIUM CHLORIDE / WTR 10 MEQ/100 ML PLCT IV ONE (08:25)
--- NOTE | 2022-04-06 10:48 | Gastroenterology Progress Note ---
Date of Service April 06, 2022 Assessment & Plan (1) Cholangiocarcinoma: (2) Anemia: Plan: Pt is a 61 yo male w hx of cholangicarcinoma s/p Whipple and chemo, followed for anemia. Had EGD on 04/04 to r/o UGI bleeding, no source of bleeding noted. Blood ct stable. He is c/o abd distension and discomfort, no n/v, passing little flatus. Does have evidence of ascites and CT abd/pelvis 3 days ago concerning for large bowel obstruction, fecal retention. Will undergo US guided paracentesis today. KUB also ordered. If KUB showed high fecal load, would recommend bowel regimen such as a enema/suppository. If signs of bowel obstruction noted, would recommend surgery eval. Though he did mention he would like to go home on hospice today. No new plans from GI standpoint, pls recall PRN (3) Ascites: Admission and Anticipated Discharge Date Admission Date: April 03, 2022 Supervising Physician Co-Signing Physician Notes I have personally seen and examined the patient with MARTELL Rodriguez. Her note reflects my exam and findings. I agree with her impression and plan. No GI interventions needed at this point. Rashad Fuentes M.D. Subjective Patient denies nausea or vomiting, is wondering when he will get his paracentesis done. States that his abdominal area is uncomfortable due to the distention. He also expressed desires to go home today with hospice. Review of Systems Review of Systems: All systems reviewed & are unremarkable except as noted in HPI & below Physical Exam Constitutional: WD/WN, vitals as above well groomed, cooperative and comfortable Eyes: EOMs intact, icteric sclera noted ENMT: external ear and nose normal, oropharynx normal Respiratory: normal respiratory effort, lungs clear to auscultation Cardiovascular: RRR, no murmur, no edema Gastrointestinal (Abdomen): Distended, BS hypoactive, non tender Skin: no rashes, warm and dry + jaundice Neurologic: Motor/Sensory: no asterixis Psychiatric: A+Ox3, euthymic affect Lymphatic: no lymphedema Results & Data ([facility]) Vital Signs (Past 12 Hours) Vital Signs Temp Pulse Pulse Resp BP Pulse Ox O2 Del Method 04/06/22 09:51 Room Air 04/06/22 07:35 82 04/06/22 07:25 36.4 C L 86 20 107/73 97 04/06/22 04:00 36.4 C L 84 18 113/71 95 Room Air 04/05/22 23:00 36.3 C L 81 20 111/70 95 Room Air (1) Ascites Ascites type: other type Qualified Code(s): R18.8 - Other ascites (2) Anemia Anemia type: unspecified type Qualified Code(s): D64.9 - Anemia, unspecified
--- NOTE | 2022-04-06 10:54 | Ultrasound Report ---
ULTRASOUND GUIDED DIAGNOSTIC AND THERAPEUTIC PARACENTESIS CLINICAL HISTORY: ascites COMPARISON STUDY: CT of the abdomen and pelvis December 02, 2021. PROCEDURE: The risks, benefits, and alternatives to the procedure were discussed with the patient inc luding the risk of bleeding, infection and injury to adjacent structures. The patient agreed to the procedure and informed written consent was obtained. Following real-time ultrasound localization, the skin the left lower quadrant was prepped and draped. Following local anesthesia with Xylocaine, the sheath paracentesis needle was inserted and approximately 4.5 liters of straw-colored fluid was remov ed by vacuum suction. The patient tolerated the procedure well and no immediate complications were evident. IMPRESSION: Ultrasound-guided paracentesis with removal of 4.5 liters of ascites. 1 L of ascites was sent to the laboratory for analysis as ordered. ACT 112: Negative or not required by law. Electronically signed by: Elias Mott M.D. 04/06/2022 10:52 AM
[2022-04-06 11:45] LABS: Albumin Peritoneal Fluid < 1.5 gm/dl; Amylase Peritoneal Fluid < 10 U/L; Glucose Peritoneal Fluid 86 mg/dl; LDH Peritoneal Fluid 86 U/L; Lipase Peritoneal Fluid < 3 U/L; Total Protein Peritoneal Fluid < 3.0 gm/dl
--- NOTE | 2022-04-06 12:07 | Hospitalist Progress Note ---
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 Cancer not amenable to further chemo, very poor prognosis, patient and his interested in exploring hospice option, will consult case management. Overall prognosis is very poor Awaiting discharge home with hospice He refused TPN Palliative care consulted (3) Anemia: Plan: On admission hemoglobin is noted to be 5.5 No evidence of hematemesis and or melena He received 2 units of PRBC Hemoglobin is 7.5 as of 04/04/2022 Appreciate GI input and recommendation Status post EGD which did not show any evidence of bleeding Globin remains more than 8 as of 04/06/2022 (4) Large bowel obstruction: Plan: Abdominal distention/pain--> large bowel obstruction Has abdominal distention with discomfort/pain No nausea no vomiting Bowel movement 3 days back Conservative management for bowel obstruction, pt w/ occasional nausea, no vomiting, last BM 7 days ago (liquid BM) and pt doesn't take food per PO---> consider surgery consult if hospice is not set up. Status post Fleet enema without any effect KUB ordered and the results pending-fecal burden in large intestine with increased gas pattern in small intestine suggestive of large bowel obstruction GI suggested surgery if there is obstruction but will discuss with the patient and the family member (5) Pleural effusion: Plan: Right pleural effusion with possible atelectasis Pulmonary consulted for probable thoracentesis Has had 1.9 L thoracentesis on 04/05/2022 (6) Gram-negative bacteremia: Plan: Noted to have 2 out of 2 blood cultures for gram-negative bacilli Likely secondary to cholangitis given the history of cholangiocarcinoma Initially started on ceftriaxone and changed to Zosyn Await sensitivity Likely to need intravenous antibiotic for at least 2 weeks No fever and or chills Sepsis due to Escherichia coli [E. coli], POA Has been on intravenous ceftriaxone Will need to take out the central line/port Plan DVT Px: Xarelto held, paracentesis eunice, SCDs We will restart Xarelto from tomorrow DNR/DNI Dispo: Pt will benefit from Hospice care given advanced cancer with poor prognosis. Pt/family would like to explore hospice options. Prognosis remains extremely poor Admission and Anticipated Discharge Date Admission Date: April 03, 2022 Subjective 04/04/2022 The patient was seen and examined in medical telemetry unit He has been complaining of extreme weakness and tiredness Has abdominal discomfort with distention without any nausea and or vomiting Denies any shortness of breath 04/05/2022 The patient was seen and examined in medical telemetry unit He has been remained very weak and lethargic He refused to have TPN and has been having nausea with vomiting on oral intake His bowel has not moved but denies any abdominal distention more than usual or any pain 04/06/2022 The patient was seen and examined in medical telemetry unit He is a status post paracentesis of 4.5 L and has been feeling a little better He has not moved his bowels for the last few days Denies any significant abdominal pain, nausea and or vomiting He wants to go home with hospice Review of Systems Review of Systems: All systems reviewed and are unremarkable except as noted below Neurologic: Extremely weak and tired but alert, awake and oriented x3 Physical Exam Physical Exam: Lying in bed with drowsiness and depression Constitutional: + ill appearing, average body habitus and + thin Eyes: + conjunctival abnormality (Deeply jaundiced) ENMT: external ear and nose normal, oropharynx normal Neck: trachea midline, no thyromegaly Respiratory: no respiratory distress Auscultation: + diminished lung sounds and + crackles (Bibasilar crackles more on the right than the left) Cardiovascular: Rate/Rhythm: regular rate and regular rhythm; not tachycardic Heart Sounds: normal S1 and normal S2; no murmur Extremities: + edema (1-2+ edema bilaterally) Gastrointestinal (Abdomen): Inspection/Auscultation: + abdomen distended (Minimally distended); + abnormal bowel sounds Percussion/Palpation: + abdomen tender and abdomen soft Musculoskeletal: No acute arthritis in any joint Neurologic: moves all extremities and awake; not confused Lymphatic: no cervical or axillary lymphadenopathy Results & Data Results & Data ([facility]) Vital Signs (Past 12 Hours) Vital Signs Temp Pulse Pulse Resp BP Pulse Ox O2 Del Method 04/06/22 11:46 36.4 C L 93 H 20 113/73 95 04/06/22 11:32 36.5 C 92 H 18 101/67 96 Room Air 04/06/22 11:15 90 18 119/73 95 Room Air 04/06/22 09:51 Room Air 04/06/22 07:35 82 04/06/22 07:25 36.4 C L 86 20 107/73 97 04/06/22 04:00 36.4 C L 84 18 113/71 95 Room Air Laboratory Results Short CBC 04/06/22 Range/Units 06:05 WBC 11.83 H (4.8-10.8) K/ul Hgb 8.0 L (14.0-18.0) g/dl Hct 22.5 L (40.1-51.0) % Plt Count 75 L (130-400) K/uL BMP 04/06/22 06:05 Sodium 135 L Potassium 3.4 L Chloride 105 Carbon Dioxide 21 BUN 57 H Creatinine 1.03 Glucose 83 Calcium 7.5 L Medications Administered Current Inpatient Medications Furosemide (Furosemide Inj 20 Mg/2 Ml Vial) 20 mg IV DAILY [facility] Stop: 05/03/22 22:46 Last Admin: 04/06/22 08:12 Dose: 20 mg Heparin Sodium (Beef Lung) (Heparin 10 Unit/Ml 5 Ml Flush) 10 ml FLUSH PRN PRN PRN Reason: Flush Stop: 05/04/22 17:17 Last Admin: 04/06/22 08:13 Dose: 10 ml Pantoprazole Sodium 40 mg/ (Syringe) 10 mls @ 5 mls/min IV BID NADER Stop: 05/03/22 20:59 Last Admin: 04/06/22 08:12 Dose: 5 mls/min Dextrose (D10w) 1,000 mls @ 0 mls/hr IV .Q0M PRN PRN Reason: protocol (see label comments) Stop: 05/04/22 09:56 Fat Emulsion-Tama Oil/Soybean Oil (Clinolipid 20% Iv Fat Emulsion) 250 mls @ 41.667 mls/hr IV .Q6H [facility] Last Admin: 04/04/22 16:40 Dose: Not Given Ceftriaxone Sodium 2,000 mg/ (Dextrose) 70 mls @ 140 mls/hr IV Q24H [facility]; Protocol Stop: 04/18/22 15:59 Last Infusion: 04/05/22 17:40 Dose: Infused Miscellaneous (Stop Clinolipid) 1 each N/A DAILY@2200 [facility] Stop: 05/04/22 21:59 Last Admin: 04/04/22 19:44 Dose: Not Given Miscellaneous (Tpn Rate Change) 1 each N/A DAILY@1700 [facility] Stop: 05/04/22 16:59 Last Admin: 04/04/22 16:41 Dose: Not Given Miscellaneous (Tpn Rate Change) 1 each N/A DAILY@0300 [facility] Stop: 05/05/22 02:59 Last Admin: 04/04/22 19:45 Dose: Not Given Miscellaneous (Stop Tpn) 1 each N/A DAILY@0400 [facility] Stop: 05/05/22 03:59 Last Admin: 04/04/22 20:55 Dose: Not Given Miscellaneous Information (Tpn/Ppn Consult Pharmacy) 1 each N/A UD PRN PRN Reason: Consult Stop: 05/03/22 20:18 Morphine Sulfate (Morphine Sulfate 4 Mg/Ml 1 Ml Carp\Vial) 4 mg IV Q6H PRN PRN Reason: Pain Stop: 04/18/22 08:07 Last Admin: 04/06/22 08:14 Dose: 4 mg Ondansetron HCl (Ondansetron Inj 2 Mg/Ml 2 Ml Vial) 4 mg IV Q6H PRN PRN Reason: nausea, vomiting Stop: 05/03/22 20:14 Last Admin: 04/06/22 08:11 Dose: 4 mg Spironolactone (Spironolactone 100 Mg Tab) 100 mg PO QAM [facility] Stop: 05/04/22 08:59 Last Admin: 04/06/22 08:22 Dose: 100 mg (1) Anemia Anemia type: unspecified type Qualified Code(s): D64.9 - Anemia, unspecified
--- NOTE | 2022-04-06 12:30 | XRay Report ---
XR KUB/Abdomen 1 view CLINICAL HISTORY: eval stool burden TECHNIQUE: 1 view of the abdomen was obtained. Comparison: Comparison is made to CT abdomen pelvis dated 522 FINDINGS: Lung bases are unremarkable. The osseous structures are grossly unremarkable. Multiple gas-distended loops of small bowel are seen measuring up to 33 mm in diameter. Prominent gas and stool burden is se en in the colon is seen in the right lower quadrant. IMPRESSION: Prominent gas and stool burden in the right lower quadrant. Gas dilated loops of small bowel are agai n seen. Findings are compatible with large bowel obstruction and/or ileus. ACT 112: Negative or not required by law. Electronically signed by: Guerrero Bella M.D. 04/06/2022 12:29 PM
--- NOTE | 2022-04-06 15:21 | Palliative Care Consultation ---
Date of Consultation April 06, 2022 Assessment & Plan (1) Abdominal pain: He has had IV morphine x 4 for total OME of 45mg in last 24 hours. Pain improved with paracentesis. Bowel obstruction present on KUB this morning. He is able to take sips and po meds. (2) Palliative care encounter: I had an extensive discussion with Mr. Marques and his , April. He has been on hospice in the past for a brief period after stopping his chemotherapy but revoked because he wanted to continue TPN. He has had further decline and realizes that he is approaching his dying time. He tells me that the most important thing to him is to be at home. "I don't want to in the hospital". I asked him if he had worries or concerns about his dying time and he said that he did not. He feels that he is no longer benefitting from TPN and has decided to stop this. He and his have questions about hospice care. We reviewed hospice benefit and services involved. We discussed equipment needed at home. He has an adjustable bed but not a hospital bed. Encouraged them to consider hospital bed for ease of care as she is caring for him. Mrs. Marques has questions about how to manage his care at home and we talked about core cutter and aide who will help her and teach her how to care for him at home. She unfortunately does not have other family support. They have friends and neighbors who will help. They have anglican and pastoral support. He would very much like to go home today. Unfortunately with E coli bacteremia, recommended treatment would be removal of IV lines and 14 day course of antibiotics. This would delay his transition to hospice and support which may be crucial for symptom management and support for them at home. We discussed option to forgo antibiotics and go home on hospice tomorrow. They understand that this would likely shorten his time and that he may within a few days rather than weeks. He feels strongly that he wants to be at home as soon as possible and would prefer to go home on hospice without antibiotics. His supports that jay jay sharma. Discussed with Dr. Villanueva and case managment. (3) Large bowel obstruction: (4) Cholangiocarcinoma: (5) Gram-negative bacteremia: History of Present Illness Reason for Consultation: goals of care Requesting Physician: Dr. Villanueva Attending Physician: Erica Villanueva MD History of Present Illness 61 yo gentleman with history of cholangiocarcinoma who is s/p Whipple procedure and chemotherapy treatment. He last had chemotherapy in September of this year. He presented with abdominal pain, distension and nausea progressing over the last two weeks. CT on admission showed large bowel obstruction with ascites and right pleural effusion. He was seen by Pulmonology and had thoracentesis for 1.9L fluid over the weekend. He also had paracentesis today. He reports that his breathing and abdominal pain are improved. He did have some nausea earlier today but denies that currently. He unfortunately also has E coli bacteremia with two indwelling lines, his mediport and PICC for TPN. Allergies Allergy/AdvReac Type Severity Reaction Status Date / Time oxycodone [From OxyContin] Allergy rash Verified 06/21/18 07:59 Home Medications Medication Instructions Recorded Confirmed Type multivitamin 1 cap PO QAM 06/21/18 04/03/22 History ferrous sulfate 325 mg (65 mg 325 mg PO BID 04/03/22 04/03/22 History iron) tablet furosemide 20 mg tablet 40 mg PO DAILY 04/03/22 04/03/22 History morphine 15 mg immediate release 15 mg PO Q4H PRN Pain 04/03/22 04/03/22 History tablet ondansetron HCl 8 mg tablet 8 mg PO Q8H PRN Nausea 04/03/22 04/03/22 History pantoprazole 40 mg tablet,delayed 40 mg PO DAILY 04/03/22 04/03/22 History release polyethylene glycol 3350 17 17 g PO DAILY PRN Constipation 04/03/22 04/03/22 History gram/dose oral powder rivaroxaban 20 mg tablet (Xarelto) 20 mg PO DAILY 04/03/22 04/03/22 History spironolactone 50 mg tablet 100 mg PO DAILY 04/03/22 04/03/22 History Patient History Medical History Cancer MASS BILE DUCT/LIVER PER PT Diabetes mellitus PRE DIABETIC Hx of pancreatitis Hydrothorax Hyperlipidemia Osteoarthritis HX OF INJECTIONS AT C6-C7. PT CONTINUES TO HAVE SOME MILD NUMBNESS IN LEFT HAND AND LEFT 5TH DIGIT. 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 Beliefs That Will Affect Care: None marital status: Current Living Situation: Spouse Current Living Situation Comment: at home with How many Children do You have: 1 Other Information That Helps Us Care for You: No Feels Safe at Home: Yes Safety Concerns: Feels Safe At This Time Assistive Devices: Bedside Commode, Cane, Walker and Other Assistive Devices Comment: adjustable bed Review of Systems Review of Systems: ESAS Pain 0/3 Dypsnea 0/3 Anxiety 0/3 Fatigue 2/3 Nausea 0/3 Drowsiness 0/3 PPS 40% Physical Exam Constitutional: + ill appearing Eyes: scleral icterus Respiratory: normal respiratory effort; no labored breathing Cardiovascular: upper and lower extremity edema Skin: jaundice Neurologic: Speech / Cognition: normal cognition Results & Data ([facility]) Vital Signs (Past 12 Hours) Vital Signs Temp Pulse Pulse Resp BP Pulse Ox O2 Del Method 04/06/22 13:32 97.9 F 86 20 102/67 95 04/06/22 12:50 98 H 16 101/67 95 Room Air 04/06/22 12:14 97.5 F L 100 H 20 120/76 94 04/06/22 12:04 97.7 F 90 20 115/73 95 04/06/22 11:46 97.5 F L 93 H 20 113/73 95 04/06/22 11:32 97.7 F 92 H 18 101/67 96 Room Air 04/06/22 11:15 90 18 119/73 95 Room Air 04/06/22 09:51 Room Air 04/06/22 07:35 82 04/06/22 07:25 97.5 F L 86 20 107/73 97 04/06/22 04:00 97.5 F L 84 18 113/71 95 Room Air PG Care Time/CCT Total # of Minutes Spent Total Time Spent: 83 Total Time Spent with Patient: Total time spent is greater than 50% in coordination of care (as documented) at patient's floor/unit and/or counseling patient: goals of care, prognosis, symptom management, hospice, coordination of care Coding Level of Care Code 52936 Initial Inpt Care Lvl 3 Diagnoses Abdominal pain R10.9 Palliative care encounter Z51.5 Large bowel obstruction K56.609 Cholangiocarcinoma C22.1 Gram-negative bacteremia R78.81
[2022-04-06] MEDS: cefTRIAXone SODIUM 2,000 MG in DEXTROSE 5% 50 ML IV SCH (16:55)
[2022-04-06 18:21] LABS: Appearance Peritoneal Fluid Clear; Color Peritoneal Fluid Straw; Lymphocytes, Fluid 8 %; Mono,Macrophage,Mesothelial 7 %; Neutrophils, Fluid 85 %; RBC Peritoneal Fluid (A) < 2000 /uL; WBC Peritoneal Fluid (A) 269 /ul (0-300)
[2022-04-07] MEDS: MoRPHine SULFATE 4 MG/ML 1 ML CARP\\VIAL IV PRN ×3 (02:48→13:19)
[2022-04-07 07:18] LABS: BUN Creatinine Ratio 51.5 (10-20); Calcium 7.3 mg/dl (8.5-10.1); Creatinine Clr Calc Pharmacy 83.9 ml/min; Est GFR (African American) 91.1 ml/min; Est GFR (Non-African American) 78.6 ml/min; Magnesium 2.1 mg/dl (1.7-2.4); Phosphorus 3.6 mg/dl (2.5-4.9); Potassium 3.2 mmol/L (3.5-5.1)
[2022-04-07] MEDS: PANTOprazole 40 MG in SYRINGE 0 ML IV SCH (08:05)
[2022-04-07] MEDS: FUROSEMIDE INJ 20 MG/2 ML VIAL IV SCH (08:05)
[2022-04-07] MEDS ORDERED: POTASSIUM CHLORIDE / WTR 10 MEQ/100 ML PLCT IV ONE (08:09)
[2022-04-07] MEDS: SPIRONOLACTONE 100 MG TAB PO SCH (08:17)
[2022-04-07] MEDS ORDERED: bisacodyL 10 MG SUPP PR STA (10:15)
--- NOTE | 2022-04-07 10:21 | Palliative Care Progress Note ---
Date of Service April 07, 2022 Assessment & Plan (1) Abdominal pain: Plan: Controlled with morphine 4mg IV. Will give dose prior to discharge to make trip home more comfortable. Assured him that hospice will monitor his pain and adjust medication as needed. (2) Palliative care encounter: Plan: I talked with Jose about how he felt about our conversation yesterday. He realizes that he is dying and denies fears or worries. 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 He also talked about how much he loves his and I encouraged him to tell her that. He is looking forward to sitting outside at home. (3) Cholangiocarcinoma: (4) Gram-negative bacteremia: Plan: He has elected not to continue antibiotics at home. He will receive a dose of rocephin prior to discharge. Admission and Anticipated Discharge Date Admission Date: April 03, 2022 Subjective Sitting at bedside in chair. Had some abdominal pain earlier relieved with morphine. Has had two doses of morphine in last 24 hours for 25 OME. He is looking forward to going home. Review of Systems Review of Systems: ESAS Pain 0/3 Dyspnea 0/3 Anxiety 0/3 Nausea 0/3 Fatigue 2/3 PPS 40% Physical Exam Constitutional: + ill appearing and + thin Eyes: scleral icterus Respiratory: normal respiratory effort; no labored breathing Cardiovascular: upper and lower extremity edema Gastrointestinal (Abdomen): tender to palpation Skin: jaundice Neurologic: awake Speech / Cognition: normal cognition Psychiatric: Affect: + tearful affect Results & Data ([facility]) Vital Signs (Past 12 Hours) Vital Signs Temp Pulse Pulse Resp BP Pulse Ox O2 Del Method 04/07/22 09:28 Room Air 04/07/22 08:21 97.5 F L 55 L 19 106/68 94 Room Air 04/07/22 07:47 87 04/07/22 02:35 97.7 F 80 18 116/72 97 Room Air 04/06/22 22:25 83 04/06/22 23:28 97.9 F 86 20 105/64 94 Room Air PG Care Time/CCT Total # of Minutes Spent Total Time Spent: 28 Total Time Spent with Patient: Total time spent is greater than 50% in coordination of care (as documented) at patient's floor/unit and/or counseling patient:symptom management, goals of care, patient support and life review Coding Level of Care Code 40598 Subseq Hosp Care Lvl 2 Diagnoses Abdominal pain R10.9 Palliative care encounter Z51.5 Cholangiocarcinoma C22.1 Gram-negative bacteremia R78.81
--- NOTE | 2022-04-07 10:22 | Hospitalist Progress Note ---
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 edema involving the upper and lower extremities and also ascites Has anasarca contributed by cholangiocarcinoma and low albumin Abdominal paracentesis has been ordered Status post 4.5 m paracentesis and the patient remains stable Has been feeling much better following thoracentesis and paracentesis Will be discharged home this afternoon with home hospice (2) Cholangiocarcinoma: Plan: Stage IV cholangiocarcinoma Admitting CTAP: Suggestive of large bowel obstruction, volume overload with anasarca and large ascites and large right pleural effusion, progressively worsened intrahepatic biliary ductal dilatation. Cancer not amenable to further chemo, very poor prognosis, patient and his interested in exploring hospice option, will consult case management. Overall prognosis is very poor Awaiting discharge home with hospice He refused TPN Palliative care consulted-appreciate input and recommendation (3) Anemia: Plan: On admission hemoglobin is noted to be 5.5 No evidence of hematemesis and or melena He received 2 units of PRBC Hemoglobin is 7.5 as of 04/04/2022 Appreciate GI input and recommendation Status post EGD which did not show any evidence of bleeding Globin remains more than 8 as of 04/06/2022 (4) Large bowel obstruction: Plan: Abdominal distention/pain--> large bowel obstruction Has abdominal distention with discomfort/pain No nausea no vomiting Bowel movement 3 days back Conservative management for bowel obstruction, pt w/ occasional nausea, no vomi ting, last BM 7 days ago (liquid BM) and pt doesn't take food per PO---> consider surgery consult if hospice is not set up. Status post Fleet enema without any effect KUB ordered and the results pending-fecal burden in large intestine with increased gas pattern in small intestine suggestive of large bowel obstruction GI suggested surgery if there is obstruction but will discuss with the patient and the family member Will give suppository and oral laxatives Will try to eat small amount of food as tolerated (5) Pleural effusion: Plan: Right pleural effusion with possible atelectasis Pulmonary consulted for probable thoracentesis Has had 1.9 L thoracentesis on 04/05/2022 (6) Gram-negative bacteremia: Plan: Noted to have 2 out of 2 blood cultures for gram-negative bacilli Likely secondary to cholangitis given the history of cholangiocarcinoma Initially started on ceftriaxone and changed to Zosyn Await sensitivity Likely to need intravenous antibiotic for at least 2 weeks No fever and or chills We will continue with oral Cipro Sepsis due to Escherichia coli [E. coli], POA Has been on intravenous ceftriaxone Will need to take out the central line/port Continue oral Cipro to finish the 14 days course of antibiotic Plan DVT Px: Xarelto held, paracentesis eunice, SCDs We will restart Xarelto from tomorrow DNR/DNI Dispo: Pt will benefit from Hospice care given advanced cancer with poor prognosis. Pt/family would like to explore hospice options. Prognosis remains extremely poor Admission and Anticipated Discharge Date Admission Date: April 03, 2022 Subjective 04/04/2022 The patient was seen and examined in medical telemetry unit He has been complaining of extreme weakness and tiredness Has abdominal discomfort with distention without any nausea and or vomiting Denies any shortness of breath 04/05/2022 The patient was seen and examined in medical telemetry unit He has been remained very weak and lethargic He refused to have TPN and has been having nausea with vomiting on oral intake His bowel has not moved but denies any abdominal distention more than usual or any pain 04/06/2022 The patient was seen and examined in medical telemetry unit He is a status post paracentesis of 4.5 L and has been feeling a little better He has not moved his bowels for the last few days Denies any significant abdominal pain, nausea and or vomiting He wants to go home with hospice 04/07/2022 The patient was seen and examined in medical telemetry unit He has been feeling a little better and is out of bed on a chair He remains extremely weak and lethargic but denies any acute distress Review of Systems Review of Systems: All systems reviewed and are unremarkable except as noted below Neurologic: Extremely weak and tired but alert, awake and oriented x3 Physical Exam Physical Exam: Sitting on a chair without any acute distress Constitutional: + ill appearing, average body habitus and + thin Eyes: + conjunctival abnormality (Deeply jaundiced) ENMT: external ear and nose normal, oropharynx normal Neck: trachea midline, no thyromegaly Respiratory: no respiratory distress Auscultation: + diminished lung sounds and + crackles (Bibasilar crackles more on the right than the left) Cardiovascular: Rate/Rhythm: regular rate and regular rhythm; not tachycardic Heart Sounds: normal S1 and normal S2; no murmur Extremities: + edema (1-2+ edema bilaterally) Gastrointestinal (Abdomen): Inspection/Auscultation: normal bowel sounds; abdomen not distended Percussion/Palpation: + abdomen tender and abdomen soft Neurologic: moves all extremities and awake; not confused Lymphatic: no cervical or axillary lymphadenopathy Results & Data Results & Data ([facility]) Vital Signs (Past 12 Hours) Vital Signs Temp Pulse Pulse Resp BP Pulse Ox O2 Del Method 04/07/22 09:28 Room Air 04/07/22 08:21 36.4 C L 55 L 19 106/68 94 Room Air 04/07/22 07:47 87 04/07/22 02:35 36.5 C 80 18 116/72 97 Room Air 04/06/22 22:25 83 04/06/22 23:28 36.6 C 86 20 105/64 94 Room Air Laboratory Results [facility] 04/07/22 06:15 Sodium 135 L Potassium 3.2 L Chloride 106 Carbon Dioxide 21 BUN 53 H Creatinine 1.03 Glucose 75 Calcium 7.3 L Medications Administered Current Inpatient Medications Bisacodyl (Bisacodyl 10 Mg Supp) 10 mg RI NOW STA Stop: 04/07/22 10:16 Ciprofloxacin (Ciprofloxacin 500 Mg Tab) 500 mg PO BID NADER Stop: 04/21/22 20:59 Heparin Sodium (Beef Lung) (Heparin 10 Unit/Ml 5 Ml Flush) 10 ml FLUSH PRN PRN PRN Reason: Flush Stop: 05/04/22 17:17 Last Admin: 04/07/22 08:04 Dose: 10 ml Dextrose (D10w) 1,000 mls @ 0 mls/hr IV .Q0M PRN PRN Reason: protocol (see label comments) Stop: 05/04/22 09:56 Fat Emulsion-Stafford Oil/Soybean Oil (Clinolipid 20% Iv Fat Emulsion) 250 mls @ 41.667 mls/hr IV .Q6H [facility] Last Admin: 04/04/22 16:40 Dose: Not Given Miscellaneous (Stop Clinolipid) 1 each N/A DAILY@2200 NADER Stop: 05/04/22 21:59 Last Admin: 04/04/22 19:44 Dose: Not Given Miscellaneous (Tpn Rate Change) 1 each N/A DAILY@1700 [facility] Stop: 05/04/22 16:59 Last Admin: 04/04/22 16:41 Dose: Not Given Miscellaneous (Tpn Rate Change) 1 each N/A DAILY@0300 [facility] Stop: 05/05/22 02:59 Last Admin: 04/04/22 19:45 Dose: Not Given Miscellaneous (Stop Tpn) 1 each N/A DAILY@0400 [facility] Stop: 05/05/22 03:59 Last Admin: 04/04/22 20:55 Dose: Not Given Morphine Sulfate (Morphine Sulfate 4 Mg/Ml 1 Ml Carp\Vial) 4 mg IV Q6H PRN PRN Reason: Pain Stop: 04/18/22 08:07 Last Admin: 04/07/22 08:17 Dose: 4 mg Ondansetron HCl (Ondansetron Inj 2 Mg/Ml 2 Ml Vial) 4 mg IV Q6H PRN PRN Reason: nausea, vomiting Stop: 05/03/22 20:14 Last Admin: 04/06/22 08:11 Dose: 4 mg Spironolactone (Spironolactone 100 Mg Tab) 100 mg PO QAM [facility] Stop: 05/04/22 08:59 Last Admin: 04/07/22 08:17 Dose: 100 mg (1) Anemia Anemia type: unspecified type Qualified Code(s): D64.9 - Anemia, unspecified
--- NOTE | 2022-04-07 10:57 | Communication Note ---
Date of Service: April 07, 2022 KUB showed ileus vs bowel obstruction. Pt is set up to go home on hospice this afternoon. He feels pain is under control with current pain meds. I reviewed KUB results w him, he would like to go home and agreeable to laxative/suppository regimen.
[2022-04-07] MEDS ORDERED: RIVAROXABAN 20 MG TAB PO SCH (11:00)
--- NOTE | 2022-04-07 18:07 | Discharge Summary ---
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 Patient was noted to have fever of 100 F today at home. Patient denies headache/dizziness/sore throat/cough/shortness of breath/chest pain/palpitation/acute changes in bowel or bladder habits. Patient gets nutrition through TPN, can drink water and p.o. meds but does not have food intake. Patient does complain of some nausea but no vomiting. Patient also complains of generalized body swelling/fluid retention and becoming more yellow in color lately. FOBT in the ED was negative. Patient denies use of tobacco/alcohol/recreational drugs. Patient is DNR/DNI. Patient is interested in exploring hospice option, will consult case management. Admission Exam Per Admitting Provider Physical Exam: GENERAL: Alert and oriented x3. On 2 L nasal cannula oxygen, mild distress, weak/ill/weak/frail/older than age. HEENT: Pallor positive, icterus positive. Pupils equal, round and reactive to light. Oral mucosa moist. NECK: No JVD, no neck masses. HEART: S1 and S2 heard. Tachycardic. No murmur, no gallop. RESPIRATORY SYSTEM: Normal AP diameter. No accessory muscle use. No wheezing, no crackles. Decreased breath sounds right greater than left. ABDOMEN: Distended, tense, mild diffuse tenderness, healed midline surgical scar noted, decreased bowel sounds. CENTRAL NERVOUS SYSTEM: No facial droop. Speech is clear. Obeys simple commands. Moves extremities. EXTREMITIES: 3+ BLE edema, 2+ thigh edema and back edema. Principal Diagnosis Cholangiocarcinoma Discharge Exam Sitting on a chair without any acute distress Constitutional + ill appearing, average body habitus and + thin Eyes + conjunctival abnormality (Deeply jaundiced) ENMT external ear and nose normal, oropharynx normal Neck trachea midline, no thyromegaly Respiratory no respiratory distress Auscultation: + diminished lung sounds and + crackles (Bibasilar crackles more on the right than the left) Cardiovascular Rate/Rhythm: regular rate and regular rhythm; not tachycardic Heart Sounds: normal S1 and normal S2; no murmur Extremities: + edema (1-2+ edema bilaterally) Gastrointestinal (Abdomen) Inspection/Auscultation: normal bowel sounds; abdomen not distended Percussion/Palpation: + abdomen tender and abdomen soft Neurologic moves all extremities and awake; not confused Lymphatic no cervical or axillary lymphadenopathy Discharge Data Allergies Allergy/AdvReac Type Severity Reaction Status Date / Time oxycodone [From OxyContin] Allergy rash Verified 06/21/18 07:59 Consultations 04/03/22 18:57 ED Decision to Admit Stat 04/03/22 20:25 Consult Pulmonology Routine 04/03/22 22:47 Consult Gastroenterology Routine 04/06/22 07:57 Consult Palliative Care Routine Procedures Performed Operation Date: 04/04/22 13:00 Actual Procedures p Esophagogastroduodenoscopy - Vaughn Richard MD Ordered Studies 04/03/22 16:57 CT head/brain wo con Stat 04/03/22 17:21 CT abd pelvis wo con Stat 04/04/22 12:46 US point of care ultrasound Urgent 04/05/22 11:49 US point of care ultrasound Urgent 04/06/22 US paracentesis abd w/image Routine Hospital Course (1) Anasarca: Patient coming in with worsening abdominal pain/distention since last 2 weeks PROJECT MANAGER Noted to have severe edema involving the upper and lower extremities and also ascites Has anasarca contributed by cholangiocarcinoma and low albumin Abdominal paracentesis has been ordered Status post 4.5 m paracentesis and the patient remains stable Has been feeling much better following thoracentesis and paracentesis Will be discharged home this afternoon with home hospice (2) Cholangiocarcinoma: Stage IV cholangiocarcinoma Admitting CTAP: Suggestive of large bowel obstruction, volume overload with anasarca and large ascites and large right pleural effusion, progressively worsened intrahepatic biliary ductal dilatation. Cancer not amenable to further chemo, very poor prognosis, patient and his interested in exploring hospice option, will consult case management. Overall prognosis is very poor Awaiting discharge home with hospice He refused TPN Palliative care consulted-appreciate input and recommendation (3) Anemia: On admission hemoglobin is noted to be 5.5 No evidence of hematemesis and or melena He received 2 units of PRBC Hemoglobin is 7.5 as of 04/04/2022 Appreciate GI input and recommendation Status post EGD which did not show any evidence of bleeding Globin remains more than 8 as of 04/06/2022 (4) Large bowel obstruction: Abdominal distention/pain--> large bowel obstruction Has abdominal distention with discomfort/pain No nausea no vomiting Bowel movement 3 days back Conservative management for bowel obstruction, pt w/ occasional nausea, no vomiting, last BM 7 days ago (liquid BM) and pt doesn't take food per PO---> consider surgery consult if hospice is not set up. Status post Fleet enema without any effect KUB ordered and the results pending-fecal burden in large intestine with increased gas pattern in small intestine suggestive of large bowel obstruction GI suggested surgery if there is obstruction but will discuss with the patient and the family member Will give suppository and oral laxatives Will try to eat small amount of food as tolerated (5) Pleural effusion: Right pleural effusion with possible atelectasis Pulmonary consulted for probable thoracentesis Has had 1.9 L thoracentesis on 04/05/2022 (6) Gram-negative bacteremia: Noted to have 2 out of 2 blood cultures for gram-negative bacilli Likely secondary to cholangitis given the history of cholangiocarcinoma Initially started on ceftriaxone and changed to Zosyn Await sensitivity Likely to need intravenous antibiotic for at least 2 weeks No fever and or chills We will continue with oral Cipro Sepsis due to Escherichia coli [E. coli], POA Has been on intravenous ceftriaxone Will need to take out the central line/port Continue oral Cipro to finish the 14 days course of antibiotic Plan DVT Px: Xarelto held, paracentesis eunice, SCDs We will restart Xarelto from tomorrow DNR/DNI Dispo: Pt will benefit from Hospice care given advanced cancer with poor prognosis. Pt/family would like to explore hospice options. Prognosis remains extremely poor Total Time Total Time Spent Total Time Spent (In Minutes): 35 minutes Discharge Plan Discharge Items Patient Disposition: Hospice - Home Reason For Visit: ANEMIA Discharge Diagnosis: Cholangiocarcinoma Condition on Discharge: Serious Activity: As commented below Activity Comment: Hospice care at home Non-emergency contact: Primary Care Provider Call non-emergency contact if: you have any medication questions and your symptoms worsen Follow-up/Referrals: Morgan Riley DO [Primary Care Provider] - (Follow-up appointments as per hospice) Diet: Regular Diet Texture: Easy to Chew Diet Comment: Small amounts at 1 time as tolerated Addtl Attending Provider Instructions: Please take precautions to avoid fall Try small amount of soft food as tolerated Pending Studies at Discharge: No Stand-Alone Forms: My [facility] Medications and DC Order Prescriptions: New ciprofloxacin HCl 500 mg Tablet 500 mg PO BID 10 Days Qty: 20 0RF Continued multivitamin Capsule 1 cap PO QAM ondansetron HCl 8 mg tablet 8 mg PO Q8H PRN (Reason: Nausea) pantoprazole 40 mg tablet,delayed release (DR/EC) 40 mg PO DAILY ferrous sulfate 325 mg (65 mg iron) Tablet 325 mg PO BID furosemide 20 mg tablet 40 mg PO DAILY polyethylene glycol 3350 17 gram/dose powder 17 g PO DAILY PRN (Reason: Constipation) morphine 15 mg tablet 15 mg PO Q4H PRN (Reason: Pain) spironolactone 50 mg tablet 100 mg PO DAILY Xarelto 20 mg tablet 20 mg PO DAILY Discharge Orders: Discharge Order (Routine); Ordered 04/07/22 Ordered By: Erica Villanueva Admission Data Admit Date/Time: 04/03/22 19:09 Attending Provider: Erica Villanueva Admit Provider: Olaf West Primary Care Provider: Morgan Riley Other Providers: Olaf West ; Lucio Langston ; Vaughn Richard ; Analy Avery ; [facility] Other Interventions: Discharge Summary Assessment (RN) Last Done: 04/07/22 12:55
[2022-04-07] MEDS ORDERED: CIPROFLOXACIN 500 MG TAB PO SCH (21:00)
--- NOTE | 2022-06-02 06:19 | Coding Query ---
PATHOLOGY To promote full compliance with coding requirements relating to patient care, physician participation is requested in all cases of airfield defence guard uncertainty. Please assist us with the question(s) below: Please review the pleural Pathology report and please document any relevant diagnosis(es) below: Diagnosis(es): Peritoneal fluid-stage IV cholangiocarcinoma : Pleural fluid-metastatic adenocarcinoma Known history of cholangiocarcinoma Thank you Rufina BREWER
== END 2022-04-07 14:03 | disposition hospice, home (50) | DRG 435 ==
LOC: ED 16:07 → 2N 19:09 → SUATTDRO 19:09 → 2N 21:55
DX: C18.9 Malignant neoplasm of colon, unspecified; J90 Pleural effusion, not elsewhere classified; C22.1 Intrahepatic bile duct carcinoma; R18.0 Malignant ascites; K56.609 Unspecified intestinal obstruction, unspecified as to partial versus complete obstruction; Z79.01 Long term (current) use of anticoagulants; J94.8 Other specified pleural conditions; Z88.5 Allergy status to narcotic agent; E78.5 Hyperlipidemia, unspecified; D63.0 Anemia in neoplastic disease; Z51.5 Encounter for palliative care; J93.9 Pneumothorax, unspecified; R17 Unspecified jaundice; Z66 Do not resuscitate; E87.1 Hypo-osmolality and hyponatremia; A41.51 Sepsis due to Escherichia coli [E. coli]; Z79.899 Other long term (current) drug therapy